=== PATIENT | female | born 1960 | race Caucasian/White ===

== ENCOUNTER 2018-03-13 10:50 | Emergency (ER) | payer MEDICARE, MEDICAID ==
[2018-03-13 10:55] VITALS: BP 112/77
[2018-03-13] MEDS ORDERED: IBUPROFEN 800 MG TABLET PO ONE (11:12)
--- NOTE | 2018-03-13 11:19 | ER Document Report ---
HPI - HPI Patient complains to provider of: left side rib pain Onset: Other - 2 days ago Quality of pain: Achy Severity: Severe Pain Level: 5 Context: Patient presents emergency department with complaints of left-sided rib pain. She reports 2 days ago she was at [facility] and she yanked 1 of the grocery carts out and hit herself in the left side of her ribs. Patient reports she has broken those ribs in the past. She reports pain is getting worse. Denies fever vomiting diarrhea. Denies trouble breathing. Associated Symptoms: None Exacerbated by: Denies Relieved by: Denies Similar symptoms previously: Yes Recently seen / treated by doctor: No - CONSTITUTIONAL Constitutional: DENIES: Fever, Chills - EENT EENT: DENIES: Sore Throat, Ear Pain, Eye problems - NEURO Neurology: DENIES: Headache, Weakness, Vision blurred - CARDIOVASCULAR Cardiovascular: REPORTS: Chest pain - RESPIRATORY Respiratory: REPORTS: Trouble Breathing. DENIES: Coughing - GASTROINTESTINAL Gastrointestinal: DENIES: Abdominal Pain, Black / Bloody Stools - URINARY Urinary: DENIES: Dysuria, Urgency, Frequency - REPRODUCTIVE Reproductive: DENIES: : - MUSCULOSKELETAL Musculoskeletal: DENIES: Extremity pain Past Medical History - General Information source: Patient - Social History Smoking Status: Former Smoker Cigarette use (# per day): No Chew tobacco use (# tins/day): No Frequency of alcohol use: None Drug Abuse: None Family History: Reviewed & Not Pertinent Patient has suicidal ideation: No Patient has homicidal ideation: No - Past Medical History Cardiac Medical History: Reports: Hx Coronary Artery Disease, Hx Heart Attack - 2010, Hx Hypercholesterolemia Denies: Hx Hypertension Pulmonary Medical History: Reports: Hx Bronchitis, Hx Pneumonia Denies: Hx Asthma, Hx COPD Neurological Medical History: Denies: Hx Cerebrovascular Accident, Hx Seizures Renal/ Medical History: Denies: Hx Peritoneal Dialysis Musculoskeletal Medical History: Denies Hx Arthritis Infectious Medical History: Denies: Hx MRSA Past Surgical History: Reports: Hx Cardiac Surgery - pacemaker, Hx Pacemaker, Hx Tubal Ligation. Denies: Hx Hysterectomy - Immunizations Hx Diphtheria, Pertussis, Tetanus Vaccination: Yes Vertical Provider Document - CONSTITUTIONAL Agree With Documented VS: Yes Exam Limitations: No Limitations General Appearance: WD/WN, No Apparent Distress - rr even/unlabored - INFECTION CONTROL TRAVEL OUTSIDE OF THE [place] IN LAST 30 DAYS: No - HEENT HEENT: Atraumatic, Normocephalic. negative: Conjuctival Injection - RESPIRATORY Respiratory: Breath Sounds Normal, No Respiratory Distress, Other - left side lower ribs area ttp, no ecchymosis RR even/unlabored - CARDIOVASCULAR Cardiovascular: Regular Rate - GI/ABDOMEN Gastrointestinal: Abdomen Soft - MUSCULOSKELETAL/EXTREMETIES Musculoskeletal/Extremeties: MAEW, FROM - NEURO Level of Consciousness: Awake, Alert, Appropriate Motor/Sensory: No Motor Deficit - DERM Integumentary: Warm, Dry Adult Front & Back Diagram: 1 - ttp, no ecchymosis RR even/unlabored Course - Re-evaluation Re-evalutation: 03/13/18 11:19 Motrin and x-ray ordered. Patient agrees with plan. - Vital Signs Vital signs: Temp Pulse Resp BP Pulse Ox 98.4 F 75 18 112/77 100 03/13/18 10:54 03/13/18 10:54 03/13/18 10:54 03/13/18 10:54 03/13/18 10:54 - Diagnostic Test Radiology reviewed: Image reviewed, Reports reviewed - EXAM DESCRIPTION: RIBS LEFT W/PA CHEST COMPLETED DATE/TIME: 03/13/2018 11:28 am REASON FOR STUDY: pain, hit COMPARISON: None. TECHNIQUE: Frontal view of the chest and additional views of the left ribs acquired. NUMBER OF VIEWS: Frontal chest film, left rib detail three views LIMITATIONS: None. FINDINGS: FRONTAL CXR: No pneumothorax. No pleural effusion. No atelectasis or infiltrates. Cardiac silhouette size normal. Left coronary stent, left-sided dual lead pacemaker. RIBS: No displaced rib fractures. No lytic or blastic bony lesions. OTHER: No other significant finding. IMPRESSION: NO PNEUMOTHORAX. NO DISPLACED RIB FRACTURES. Discharge - Discharge Clinical Impression: Rib pain on left side Condition: Stable Disposition: HOME, SELF-CARE Additional Instructions: *You have been evaluated for rib pain *Take medication as prescribed *Cough and deep breathe frequently *Follow up with a primary care provider within 5 days *Return to ED for worsening condition, changes, needs Referrals: ETHEL RODRIGUEZ MD [Primary Care Provider] - Follow up in 3-5 days
--- NOTE | 2018-03-13 11:53 | RADIOLOGY REPORT (SQ) ---
EXAM DESCRIPTION: RIBS LEFT W/PA CHEST COMPLETED DATE/TIME: 03/13/2018 11:28 am REASON FOR STUDY: pain, hit COMPARISON: None. TECHNIQUE: Frontal view of the chest and additional views of the left ribs acquired. NUMBER OF VIEWS: Frontal chest film, left rib detail three views LIMITATIONS: None. FINDINGS: FRONTAL CXR: No pneumothorax. No pleural effusion. No atelectasis or infiltrates. Cardi ac silhouette size normal. Left coronary stent, left-sided dual lead pacemaker. RIBS: No displaced rib fractures. No lytic or blastic bony lesions. OTHER: No other significant finding. IMPRESSION: NO PNEUMOTHORAX. NO DISPLACED RIB FRACTURES. COMMENT: SITE OF TRAUMA/COMPLAINT MARKED/STAMP COMPLETED: No TECHNICAL DOCUMENTATION: JOB ID: [id number] [employer]- All Rights Reserved Reading location - IP/workstation name: [email or web address]
== END 2018-03-13 12:25 | disposition home or self-care (01) ==
LOC: ER 10:50
DX: R07.89 Other chest pain (principal); I25.10 Atherosclerotic heart disease of native coronary artery without angina pectoris; E78.00 Pure hypercholesterolemia, unspecified; I25.2 Old myocardial infarction; Z98.51 Tubal ligation status; Z95.0 Presence of cardiac pacemaker
CPT/HCPCS: 99283; 71101; A9270

== ENCOUNTER → 2018-06-25 | Outpatient (CLI) | payer MEDICARE, MEDICAID ==
--- NOTE | 2018-06-25 10:30 | RADIOLOGY REPORT (SQ) ---
EXAM DESCRIPTION: SHOULDER RIGHT 2 OR MORE VIEWS COMPLETED DATE/TIME: 06/25/2018 9:52 am REASON FOR STUDY: PAIN OF RT CLAVICLE M89.8X1 OTHER SPECIFIED DISORDERS OF BONE, SHOULDER COMPARISON: None. NUMBER OF VIEWS: Three views. TECHNIQUE: Internal rotation, external rotation, and Y view images acquired of the right shoulder. LIMITATIONS: None. FINDINGS: MINERALIZATION: Normal. BONES: No acute fracture or dislocation. No worrisome bone lesions. JOINTS: No glenohumeral dislocation. No acromioclavicular joint widening. Mild AC joint bony spurri ng. There is joint space narrowing and bony spurring of the sternoclavicular joint marked with arrows. VISUALIZED LUNGS AND RIBS: No pneumothorax. No rib fracture. SOFT TISSUES: No radiopaque foreign body. OTHER: No other significant finding. IMPRESSION: Joint space narrowing and bony spurring at the sternoclavicular joint. Acromioclavicular joint bony spurring. No AC joint widening or malalignment. No acute glenohumeral fracture or malalignment TECHNICAL DOCUMENTATION: JOB ID: [id number] [employer]- All Rights Reserved Reading location - IP/workstation name: [email or web address]
--- NOTE | 2018-06-25 10:57 | RADIOLOGY REPORT (SQ) ---
EXAM DESCRIPTION: CHEST PA/LATERAL COMPLETED DATE/TIME: 06/25/2018 9:52 am REASON FOR STUDY: PAIN OF RT CLAVICLE Persistent dry cough COMPARISON: None. EXAM PARAMETERS: NUMBER OF VIEWS: two views TECHNIQUE: Digital Frontal and Lateral radiographic views of the chest acquired. RADIATION DOSE: NA LIMITATIONS: none FINDINGS: LUNGS AND PLEURA: No opacities, masses or pneumothorax. No pleural effusion. MEDIASTINUM AND HILAR STRUCTURES: No masses or contour abnormalities. HEART AND VASCULAR STRUCTURES: Heart normal size. No evidence for failure. BONES: Mild bony spurring at the right sternoclavicular joint HARDWARE: Left-sided pacemaker OTHER: No other significant finding. IMPRESSION: NO SIGNIFICANT RADIOGRAPHIC FINDING IN THE CHEST. TECHNICAL DOCUMENTATION: JOB ID: [id number] [employer]- All Rights Reserved Reading location - IP/workstation name: [email or web address]
== END ==
LOC: OD 09:35
PROVIDERS: ATTEND Internal Medicine Medical Oncology
DX: M89.8X1 Other specified disorders of bone, shoulder (principal)
CPT/HCPCS: 71046

== ENCOUNTER → 2019-12-31 | Outpatient (CLI) | payer MEDICARE, MEDICAID | LOC: OD 11:06 | PROVIDERS: ATTEND Registered Nurse | DX: E87.5 Hyperkalemia (principal) | CPT/HCPCS: 36415; 84132 ==

== ENCOUNTER 2020-03-15 12:21 | Inpatient (IN) | payer MEDICAID, MEDICARE ==
[2020-03-15] MEDS ORDERED: RINGERS SOLUTION,LACTATED 1,000 ML IV ONE (14:45)
[2020-03-15] MEDS ORDERED: ALBUTEROL SULFATE 0.083% NEB 2.5 MG/3 ML AMPUL NEB ONE (14:50)
--- NOTE | 2020-03-15 14:50 | ER Document Report ---
ED General - General Stated Complaint: COUGH,FEVER Time Seen by Provider: 03/15/20 14:15 Primary Care Provider: KIRA FELICIANO, GLUED WOOD TESTER [NURSE PRACTITIONER] - Follow up as needed Notes: 59-year-old female presents emergency department on the advice of her physician Dr. Wick. Patient states that she has been feeling generally unwell for the past 5 to 6 days, shortness of breath associated with a dry cough. 3 days ago she was tested for coronavirus, her test came back positive today. States that she was started on azithromycin 3 days ago for suspicion of possible coronavirus. States that she has been feeling progressively worse since then. Complains of shortness of breath, upper abdominal pain, mild diarrhea, dry cough. Denies any chest pain. Admits fevers. TRAVEL OUTSIDE OF THE [place] IN LAST 30 DAYS: No - Related Data Allergies/Adverse Reactions: No Known Allergies Allergy (Verified 03/15/20 16:26) Past Medical History - General Information source: Patient - Social History Smoking Status: Former Smoker Frequency of alcohol use: Occasional Drug Abuse: None Family History: Reviewed & Not Pertinent - Past Medical History Cardiac Medical History: Reports: Hx Coronary Artery Disease, Hx Heart Attack - 2010, Hx Hypercholesterolemia Denies: Hx Hypertension Pulmonary Medical History: Reports: Hx Bronchitis, Hx Pneumonia Denies: Hx Asthma, Hx COPD Neurological Medical History: Denies: Hx Cerebrovascular Accident, Hx Seizures Renal/ Medical History: Denies: Hx Peritoneal Dialysis Musculoskeletal Medical History: Denies Hx Arthritis Infectious Medical History: Denies: Hx MRSA Past Surgical History: Reports: Hx Cardiac Surgery - pacemaker, Hx Pacemaker, Hx Tubal Ligation. Denies: Hx Hysterectomy - Immunizations Hx Diphtheria, Pertussis, Tetanus Vaccination: Yes Review of Systems - Review of Systems Constitutional: See HPI, Chills, Diaphoresis, Fever, Malaise EENT: No symptoms reported Cardiovascular: No symptoms reported. denies: Chest pain, Syncope Respiratory: See HPI, Cough, Short of breath Gastrointestinal: See HPI, Abdominal pain, Diarrhea. denies: Nausea, Vomiting -: Yes All other systems reviewed and negative Physical Exam - Vital signs Vitals: Temp 100.5 F H 03/15/20 14:00 - Notes Notes: GENERAL: Awake, sitting up in bed, appears tired and uncomfortable but not in any acute respiratory distress. HEAD: Normocephalic, atraumatic EYES: Pupils equal, round and reactive to light, extraocular movements intact. ENT: Oral mucosa moist, tongue midline. NECK: Full range of motion, supple, trachea midline. LUNGS: Trace expiratory wheezing, no acute respiratory distress, no tachypnea. HEART: Mildly tachycardic rate and rhythm, no murmurs, gallops, rubs. ABDOMEN: Soft, nontender, nondistended, bowel sounds present in all 4 quadrants. EXTREMITIES: Moves all 4 extremities spontaneously, no edema, radial and dorsalis pedis pulses 2/4 bilaterally. No cyanosis. NEUROLOGICAL: Alert and oriented x3, normal speech. PSYCH: Normal mood, normal affect. SKIN: Warm, Dry, normal turgor, no rashes or lesions noted. Course - Re-evaluation Re-evalutation: 03/15/20 17:27 CBC unremarkable, coags slightly prolonged, venous blood gas unremarkable, CMP shows low sodium of 132.3, potassium elevated at 5.2, BUN elevated at 22, lactic acid normal, troponin detectable but negative at 0.017, proBNP elevated at 932. Chest x-ray shows multifocal pneumonia. Given the borderline hypoxia with a pulse ox of 9 percent patient will be given Decadron for4 COVID related pneumonia, patient also started on azithromycin and Rocephin. Patient discussed with Dr. Frazier who agrees to admit the patient to his service. Due to the COVID positive status patient will have to go to the IMCU. - Vital Signs Vital signs: Temp Pulse Resp BP Pulse Ox 100.3 F 105 H 20 106/68 94 03/15/20 14:59 03/15/20 14:59 03/15/20 14:59 03/15/20 14:59 03/15/20 14:59 - Laboratory Result Diagrams: 03/15/20 15:30 03/15/20 15:30 Laboratory results interpreted by me: 03/15/20 03/15/20 03/15/20 15:30 15:30 15:30 MCV 108 H MCH 37.0 H RDW 15.3 H APTT 42.5 H Sodium 132.3 L Potassium 5.2 H BUN 22 H AST 58 H NT-Pro-B Natriuret Pep 03/15/20 15:30 MCV MCH RDW APTT Sodium Potassium BUN AST NT-Pro-B Natriuret Pep 932 H - EKG Interpretation by Me Additional EKG results interpreted by me: 03/15/20 17:59 EKG shows sinus rhythm at a rate of 98, left axis deviation, normal intervals, no ST segment elevation or depression, T wave flattening in lead III, rapid R wave progression per my interpretation. Discharge - Discharge Clinical Impression: COVID-19, Multifocal pneumonia, Hyperkalemia Condition: Fair Disposition: ADMITTED INPATIENT Admitting Provider: Karin (Hospitalist) Unit Admitted: IMCU Referrals: KIRA FELICIANO, GLUED WOOD TESTER [NURSE PRACTITIONER] - Follow up as needed
--- NOTE | 2020-03-15 15:31 | RADIOLOGY REPORT (SQ) ---
EXAM DESCRIPTION: CHEST SINGLE VIEW IMAGES COMPLETED DATE/TIME: 03/15/2020 3:19 pm REASON FOR STUDY: COVID +, SOB COMPARISON: 06/25/2018 EXAM PARAMETERS: NUMBER OF VIEWS: One view. TECHNIQUE: Single frontal radiographic view of the chest acquired. RADIATION DOSE: NA LIMITATIONS: None. FINDINGS: LUNGS AND PLEURA: Multifocal patchy airspace opacities are seen involving predominantly th e lung bases. No pleural effusion or pneumothorax. MEDIASTINUM AND HILAR STRUCTURES: No masses. Contour normal. HEART AND VASCULAR STRUCTURES: Heart normal in size. Normal vasculature. BONES: No acute findings. HARDWARE: AICD, stable. OTHER: No other significant finding. IMPRESSION: Multi lobar pneumonia. TECHNICAL DOCUMENTATION: JOB ID: [id number] [employer]- All Rights Reserved Reading location - IP/workstation name: [email or web address]
[2020-03-15 15:48] LABS: VENOUS BLOOD BASE EXCESS -4.3 mmol/L; VENOUS BLOOD HCO3 20.6 mmol/L (20-32); VENOUS BLOOD PCO2 37.5 mmHg (35-63); VENOUS BLOOD PH 7.36 (7.30-7.42)
[2020-03-15 16:09] LABS: INTERNATIONAL RATION (INR) 1.16; PARTIAL THROMBOPLASTIN TIME 42.5 SEC (23.5-35.8)
[2020-03-15 16:12] LABS: HEMATOCRIT 45.3 % (36.0-47.0); HEMOGLOBIN 15.5 g/dL (12.0-15.5); MEAN CORPUSCULAR HGB CONC 34.2 g/dL (32.0-36.0); MEAN CORPUSCULAR VOLUME 108 fl (80-97); PLATELET COUNT 375 10^3/uL (150-450); RED BLOOD COUNT 4.19 10^6/uL (3.72-5.28); RED CELL DISTRIBUTION WIDTH 15.3 % (11.5-14.0); WHITE BLOOD COUNT 5.3 10^3/uL (4.0-10.5)
[2020-03-15 16:21] LABS: ALKALINE PHOSPHATASE 72 U/L (38-126); ANION GAP 8 (5-19); ASPARTATE AMINO TRANSFERASE 58 U/L (14-36); BILIRUBIN,DIRECT 0.2 mg/dL (0.0-0.4); BILIRUBIN,TOTAL 0.8 mg/dL (0.2-1.3); BLOOD UREA NITROGEN 22 mg/dL (7-20); CARBON DIOXIDE 22 mmol/L (22-30); CHLORIDE 102 mmol/L (98-107); CREATINE KINASE 37 U/L (30-135); GLUCOSE 103 mg/dL (75-110); POTASSIUM 5.2 mmol/L (3.6-5.0)
[2020-03-15 16:34] LABS: NT PRO BNP 932 pg/mL (<125); TROPONIN I 0.017 ng/mL
[2020-03-15 16:39] LABS: CREATINE KINASE MB < 0.22 ng/mL (<4.55)
[2020-03-15 16:44] LABS: ABSOLUTE LYMPHOCYTES# (MANUAL) 1.1 10^3/uL (0.5-4.7); ABSOLUTE MONOCYTES # (MANUAL) 0.2 10^3/uL (0.1-1.4); BASOPHILS % (MANUAL) 0 % (0-2); EOSINOPHILS % (MANUAL) 0 % (0-6); LYMPHOCYTES % (MANUAL) 20 % (13-45); MONOCYTES % (MANUAL) 4 % (3-13); SEGMENTED NEUTROPHILS % (MAN) 76 % (42-78); TOTAL CELLS COUNTED 100
[2020-03-15 16:47] LABS: POLYCHROMASIA SLIGHT; TOXIC VACUOLATION PRESENT
[2020-03-15 16:48] LABS: PLATELET COMMENT ADEQUATE; TEAR DROP CELLS SLIGHT
[2020-03-15] MEDS ORDERED: AZITHROMYCIN INJ 500 MG VIAL IV ONE (17:14)
[2020-03-15] MEDS ORDERED: DEXAMETHASONE SOD PHOS INJ 10 MG/1 ML VIAL IV ONE (17:14)
[2020-03-15] MEDS ORDERED: CEFTRIAXONE 1 GM/D5W RTU 1 GM/50 ML RTUPB IV ONE (17:14)
[2020-03-15] MEDS ORDERED: OXYCODONE-ACETAMINOPHEN 5-325 MG TABLET PO PRN (17:56)
[2020-03-15] MEDS ORDERED: PROMETHAZINE HCL INJ 25 MG/1 ML VIAL IV PRN (17:56)
[2020-03-15] MEDS ORDERED: IPRATROPIUM/ALBUTEROL 0.5-2.5 MG/3 ML AMPUL NEB PRN (17:56)
[2020-03-15] MEDS ORDERED: ONDANSETRON HCL INJ/PF 4 MG/2 ML SDV IV PRN (17:56)
[2020-03-15] MEDS ORDERED: NORMAL SALINE 1000 ML 1,000 ML IV PRN (17:56)
[2020-03-15] MEDS ORDERED: FUROSEMIDE 20 MG TABLET PO PRN (18:02)
[2020-03-15] MEDS ORDERED: GLUCAGON,HUMAN RECOMB 1 MG INJ IM PRN (18:05)
[2020-03-15] MEDS ORDERED: DEXTROSE 40% GEL 15 GM TUBE PO PRN ×2 (18:05)
[2020-03-15] MEDS ORDERED: DEXTROSE 50%-WATER 25 GM/50 ML DISP.SYRIN IV PRN ×2 (18:05)
[2020-03-15] MEDS ORDERED: HYDRALAZINE HCL INJ/PF 20 MG/1 ML SDV IV PRN (18:06)
[2020-03-15] MEDS ORDERED: DEXAMETHASONE SOD PHOSPHATE INJ 4 MG/1 ML VIAL IV ONE (18:15)
--- NOTE | 2020-03-15 18:17 | PDOC H&P ---
History of Present Illness Admission Date/PCP: PEPE NAVARRETE MD History of Present Illness: GABRIELE RODRIGUEZ is a 59 year old female past medical history of thrombocytosis, CAD status post [place] 2010 and pacemaker placement, hypertension, diabetes, presented to ED complaining of 1 week of generalized fatigue and weakness, shortness of breath associated with dry cough, nonbloody diarrhea subjective fever. A week ago patient went to her PCP and It was suspected and patient was tested for COVID and was started on azithromycin, today patient was notified by her PCP that her COVID test had come back positive and she needed to report to ED. Denies any chest pain, headache, vision changes, loss of taste, loss of smell, focal neurological symptoms, orthopnea, proximal nocturnal dyspnea, weight gain, weight loss, abdominal pain, constipation or any urinary symptoms. In the ED she was noted to be febrile, tachycardic and tachypneic hyperkalemic, and chest x-ray showing multilobar pneumonia. Hospitalist was consulted for admission. Past Medical History Cardiac Medical History: Reports: Coronary Artery Disease, Myocardial Infarction - 2010, Hyperlipidema Denies: Hypertension Pulmonary Medical History: Reports: Bronchitis, Pneumonia Denies: Asthma, Chronic Obstructive Pulmonary Disease (COPD) Neurological Medical History: Denies: Seizures Musculoskeltal Medical History: Denies: Arthritis Hematology: Denies: Anemia Infectious Medical History: Denies: Methicillin-Resistant Staph Aureus Past Surgical History Past Surgical History: Reports: Pacemaker, Tubal Ligation Denies: Hysterectomy Social History Smoking Status: Former Smoker Family History Family History: Reviewed & Not Pertinent Parental Family History Reviewed: Yes Children Family History Reviewed: Yes Sibling(s) Family History Reviewed.: Yes Medication/Allergy Home Medications: Hydroxyurea 500 mg PO DAILY 09/11/12 Sotalol HCl [Sotalol] 40 mg PO DAILY 09/11/12 Cetirizine HCl [Zyrtec] 10 mg PO DAILY 03/15/20 Escitalopram Oxalate [Lexapro 10 mg Tablet] 15 mg PO DAILY 03/15/20 Furosemide [Lasix 20 mg Tablet] 20 mg PO DAILYP PRN 03/15/20 Metformin HCl [Glucophage 500 mg Tablet] 500 mg PO BIDACBS 03/15/20 Allergies/Adverse Reactions: No Known Allergies Allergy (Verified 03/15/20 16:26) Review of Systems Review of Systems: as per hpi Physical Exam Vital Signs: Temp Pulse Resp BP Pulse Ox 100.3 F 105 H 20 106/68 94 03/15/20 14:59 03/15/20 14:59 03/15/20 14:59 03/15/20 14:59 03/15/20 14:59 Intake & Output 03/14/20 03/15/20 03/16/20 06:59 06:59 06:59 Intake Total 1000 Balance 1000 Weight 64.864 kg General appearance: PRESENT: no acute distress, well-developed, well-nourished Head exam: PRESENT: atraumatic, normocephalic Respiratory exam: PRESENT: clear to auscultation tristan, crackles. ABSENT: rales, rhonchi, wheezes Cardiovascular exam: PRESENT: RRR. ABSENT: diastolic murmur, rubs, systolic murmur GI/Abdominal exam: PRESENT: normal bowel sounds, soft. ABSENT: distended, guarding, mass, organolmegaly, rebound, tenderness Neurological exam: PRESENT: alert, awake, oriented to person, oriented to place, oriented to time, oriented to situation, CN II-XII grossly intact. ABSENT: motor sensory deficit Results Laboratory Results: 03/15/20 15:30 03/15/20 15:30 03/15/20 03/15/20 03/15/20 15:30 15:30 15:30 WBC 5.3 RBC 4.19 Hgb 15.5 Hct 45.3 MCV 108 H MCH 37.0 H MCHC 34.2 RDW 15.3 H Plt Count 375 Seg Neutrophils % Not Reportable VBG pH VBG pCO2 VBG HCO3 VBG Base Excess Sodium 132.3 L Potassium 5.2 H Chloride 102 Carbon Dioxide 22 Anion Gap 8 BUN 22 H Creatinine 0.87 Est GFR ( Amer) > 60 Glucose 103 Lactic Acid 1.0 Calcium 9.0 Total Bilirubin 0.8 AST 58 H Alkaline Phosphatase 72 Total Protein 8.0 Albumin 4.0 Lipase 257.0 03/15/20 15:30 WBC RBC Hgb Hct MCV MCH MCHC RDW Plt Count Seg Neutrophils % VBG pH 7.36 VBG pCO2 37.5 VBG HCO3 20.6 VBG Base Excess -4.3 Sodium Potassium Chloride Carbon Dioxide Anion Gap BUN Creatinine Est GFR ( Amer) Glucose Lactic Acid Calcium Total Bilirubin AST Alkaline Phosphatase Total Protein Albumin Lipase 08/05/20 08/05/20 15:30 15:30 Creatine Kinase 37 CK-MB (CK-2) < 0.22 Troponin I 0.017 NT-Pro-B Natriuret Pep 932 H Impressions: Chest X-Ray 03/15/20 14:42 IMPRESSION: Multi lobar pneumonia. Assessment and Plan - Diagnosis (1) Multifocal pneumonia Is this a current diagnosis for this admission?: Yes Plan: Likely due to COVID-19, superimposed bacterial pneumonia could also be a poss ibility. Chest x-ray positive for multifocal pneumonia. WBC WNL. Low-grade fever. Empiric IV antibiotics, sputum culture, supplemental oxygen, duo nebs, weight dosed Lovenox, incentive spirometry, flutter valve. (2) CAD (coronary artery disease) Is this a current diagnosis for this admission?: Yes Plan: Denies any anginal symptoms. Mildly elevated troponin likely due to demand mismatch. Resume home meds. Trend troponins. Aspirin and statin. (3) Thrombocytosis Is this a current diagnosis for this admission?: Yes Plan: History of thrombocytosis. On hydroxyurea. Resume home meds. Outpatient PCP and hematology follow-up. (4) Hypertension Is this a current diagnosis for this admission?: Yes Plan: Euvolemic. Normotensive. Resume home meds. Adjust meds as needed. (5) COVID-19 Is this a current diagnosis for this admission?: Yes Plan: As per. (6) Hyperkalemia Is this a current diagnosis for this admission?: Yes Plan: No acute EKG changes. Hyperkalemia protocol. (7) Diabetes Qualifiers: Diabetes mellitus type: type 2 Is this a current diagnosis for this admission?: Yes Plan: Diabetic diet. Sliding scale insulin. Accu-Chek. Hypoglycemia protocol. - Time Time Spent with patient: 35 or more minutes Medications reviewed and adjusted accordingly: Yes Anticipated Discharge Disposition: Home, Self Care Anticipated Discharge Timeframe: within 48 hours
[2020-03-15] MEDS: ACETAMINOPHEN 325 MG TABLET PO PRN (18:39)
--- NOTE | 2020-03-15 18:52 | EKG REPORT ---
SEVERITY:- ABNORMAL ECG - SINUS RHYTHM PROBABLE LEFT ATRIAL ABNORMALITY LEFT ANTERIOR FASCICULAR BLOCK LATERAL INFARCT, AGE INDETERMINATE : Confirmed by: Haroldo Abbasi MD 15-Mar-2020 18:51:35
[2020-03-15 21:00] LABS: APPEARANCE,URINE SLIGHTLY-CLOUDY; BILIRUBIN,URINE NEGATIVE (NEGATIVE); COLOR,URINE YELLOW; GLUCOSE, URINE NEGATIVE (NEGATIVE); KETONES,URINE TRACE mg/dL (NEGATIVE); LEUKOCYTE ESTERASE,URINE NEGATIVE (NEGATIVE); NITRITE,URINE NEGATIVE (NEGATIVE); PROTEIN,URINE 30 mg/dL (NEGATIVE); URINE SPECIFIC GRAVITY 1.019; UROBILINOGEN,URINE NEGATIVE mg/dL (<2.0)
[2020-03-15] MEDS ORDERED: DEXAMETHASONE SOD PHOSPHATE INJ 4 MG/1 ML VIAL IM SCH (22:00)
[2020-03-15] MEDS ORDERED: DEXAMETHASONE SOD PHOS INJ 10 MG/1 ML VIAL IM SCH (22:00)
[2020-03-15] MEDS: FAMOTIDINE 20 MG TABLET PO SCH (23:35)
[2020-03-15] MEDS: TEMAZEPAM 7.5 MG CAPSULE PO SCH (23:48)
[2020-03-15] MEDS: ENOXAPARIN SODIUM INJ 60 MG/0.6 ML DISP.SYRIN SUBCUT SCH (23:48)
[2020-03-15] MEDS: INSULIN LISPRO 100 UNIT/ML 3 ML VIAL SUBCUT SCH (23:49)
[2020-03-16] MEDS ORDERED: DEXAMETHASONE SOD PHOSPHATE INJ 4 MG/1 ML VIAL IM SCH (02:00)
[2020-03-16] MEDS ORDERED: NORMAL SALINE 1000 ML 1,000 ML IV PRN (04:52)
[2020-03-16] MEDS ORDERED: NORMAL SALINE 1000 ML 1,000 ML IV ONE (05:00)
[2020-03-16] MEDS: DEXAMETHASONE SOD PHOSPHATE INJ 4 MG/1 ML VIAL IV SCH ×3 (05:54→22:04)
[2020-03-16 07:00] LABS: INTERNATIONAL RATION (INR) 1.07; PROTHROMBIN TIME 14.1 SEC (11.4-15.4)
[2020-03-16 07:01] LABS: HEMATOCRIT 44.8 % (36.0-47.0); HEMOGLOBIN 15.4 g/dL (12.0-15.5); MEAN CORPUSCULAR HEMOGLOBIN 37.3 pg (27.0-33.4); MEAN CORPUSCULAR HGB CONC 34.5 g/dL (32.0-36.0); MEAN CORPUSCULAR VOLUME 108 fl (80-97); PLATELET COUNT 314 10^3/uL (150-450); RED BLOOD COUNT 4.14 10^6/uL (3.72-5.28); RED CELL DISTRIBUTION WIDTH 15.2 % (11.5-14.0)
[2020-03-16 07:28] LABS: DIRECT LDL 61 mg/dL (<100); TRIGLYCERIDES 148 mg/dL (<150); VLDL CHOLESTEROL 29.6 mg/dL (10-31)
[2020-03-16] MEDS ORDERED: ONDANSETRON HCL INJ/PF 4 MG/2 ML SDV IV PRN (08:00)
[2020-03-16] MEDS ORDERED: PROMETHAZINE HCL INJ 25 MG/1 ML VIAL IV PRN (08:00)
[2020-03-16] MEDS: INSULIN LISPRO 100 UNIT/ML 3 ML VIAL SUBCUT SCH ×4 (08:08→22:03)
[2020-03-16 08:32] LABS: ABSOLUTE LYMPHOCYTES# (MANUAL) 0.4 10^3/uL (0.5-4.7); ABSOLUTE MONOCYTES # (MANUAL) 0.1 10^3/uL (0.1-1.4); BASOPHILS % (MANUAL) 0 % (0-2); EOSINOPHILS % (MANUAL) 0 % (0-6); LYMPHOCYTES % (MANUAL) 13 % (13-45); MONOCYTES % (MANUAL) 2 % (3-13); SEGMENTED NEUTROPHILS % (MAN) 84 % (42-78); TOTAL CELLS COUNTED 100
[2020-03-16 08:33] LABS: ANISOCYTOSIS SLIGHT; PLATELET CLUMPS PRESENT; POLYCHROMASIA SLIGHT; TOXIC VACUOLATION PRESENT
[2020-03-16 08:34] LABS: PLATELET COMMENT ADEQUATE
[2020-03-16 09:28] LABS: ALBUMIN 3.3 g/dL (3.5-5.0); ALKALINE PHOSPHATASE 64 U/L (38-126); ANION GAP 7 (5-19); ASPARTATE AMINO TRANSFERASE 50 U/L (14-36); BILIRUBIN,DIRECT 0.1 mg/dL (0.0-0.4); BILIRUBIN,TOTAL 0.4 mg/dL (0.2-1.3); BLOOD UREA NITROGEN 17 mg/dL (7-20); CALCIUM 8.6 mg/dL (8.4-10.2); CARBON DIOXIDE 20 mmol/L (22-30); CHLORIDE 109 mmol/L (98-107); GLUCOSE 157 mg/dL (75-110); POTASSIUM 5.7 mmol/L (3.6-5.0); TOTAL PROTEIN 6.9 g/dL (6.3-8.2)
[2020-03-16] MEDS ORDERED: ESCITALOPRAM OXALATE 10 MG TABLET PO SCH (10:00)
[2020-03-16] MEDS: NORMAL SALINE 1000 ML 1,000 ML IV PRN ×2 (10:00→18:51)
[2020-03-16] MEDS: ENOXAPARIN SODIUM INJ 60 MG/0.6 ML DISP.SYRIN SUBCUT SCH ×2 (10:00→22:04)
[2020-03-16] MEDS: HYDROXYUREA 500 MG CAPSULE PO SCH (10:01)
[2020-03-16] MEDS: ESCITALOPRAM OXALATE 10 MG TABLET PO SCH ×2 (10:01→10:13)
[2020-03-16] MEDS: ZINC SULFATE 220 MG CAPSULE PO SCH (10:01)
[2020-03-16] MEDS: SOTALOL HCL 80 MG TABLET PO SCH (10:01)
[2020-03-16] MEDS: ASCORBIC ACID 500 MG TABLET PO SCH ×2 (10:01→18:52)
[2020-03-16] MEDS: FAMOTIDINE 20 MG TABLET PO SCH (10:02)
[2020-03-16] MEDS ORDERED: POTASSI CL 20 MEQ/50 ML RIDER 20 MEQ/50 ML RTUPB IV ONE (10:14)
--- NOTE | 2020-03-16 10:26 | PDOC PROGRESS REPORT ---
Subjective Progress Note for:: 03/16/20 Subjective:: GABRIELE RODRIGUEZ is a 59 year old female past medical history of th rombocytosis, CAD status post [place] 2010 and pacemaker placement, hypertension, diabetes, presented to ED complaining of 1 week of generalized fatigue and weakness, shortness of breath associated with dry cough, nonbloody diarrhea subjective fever. A week ago patient went to her PCP and It was suspected and patient was tested for COVID and was started on azithromycin, today patient was notified by her PCP that her COVID test had come back positive and she needed to report to ED. Denies any chest pain, headache, vision changes, loss of taste, loss of smell, focal neurological symptoms, orthopnea, proximal nocturnal dyspnea, weight gain, weight loss, abdominal pain, constipation or any urinary symptoms. In the ED she was noted to be febrile, tachycardic and tachypneic hyperkalemic, and chest x-ray showing multilobar pneumonia. Hospitalist was consulted for admission. 03/16/2020. No acute events overnight. Comfortably resting in bed apparent distress, denies any fever, chills, nausea, vomiting, diarrhea, constipation or any urinary symptoms. Ambulatory and having normal bowel and bladder movements. If remains asymptomatic will discharge home tomorrow. Reason For Visit: RESPIRATORY FAILURE WITH HYPOXIA, COVID-19 Physical Exam Vital Signs: Temp Pulse Resp BP Pulse Ox 97.7 F 71 24 H 88/56 L 94 03/16/20 08:00 03/16/20 08:00 03/16/20 08:00 03/16/20 08:00 03/16/20 09:13 Intake & Output 03/15/20 03/16/20 03/17/20 06:59 06:59 06:59 Intake Total 1050 1000 Balance 1050 1000 Weight 65 kg General appearance: PRESENT: no acute distress, well-developed, well-nourished Head exam: PRESENT: atraumatic, normocephalic Respiratory exam: PRESENT: clear to auscultation tristan. ABSENT: rales, rhonchi, wheezes Cardiovascular exam: PRESENT: RRR, other - Pacemaker in place. ABSENT: diastolic murmur, rubs, systolic murmur GI/Abdominal exam: PRESENT: normal bowel sounds, soft. ABSENT: distended, guarding, mass, organolmegaly, rebound, tenderness Neurological exam: PRESENT: alert, awake, oriented to person, oriented to place, oriented to time, oriented to situation, CN II-XII grossly intact. ABSENT: mot or sensory deficit Results Laboratory Results: 03/16/20 06:32 03/16/20 08:30 03/15/20 03/15/20 03/15/20 15:30 15:30 15:30 WBC 5.3 RBC 4.19 Hgb 15.5 Hct 45.3 MCV 108 H MCH 37.0 H MCHC 34.2 RDW 15.3 H Plt Count 375 Seg Neutrophils % Not Reportable VBG pH VBG pCO2 VBG HCO3 VBG Base Excess Sodium 132.3 L Potassium 5.2 H Chloride 102 Carbon Dioxide 22 Anion Gap 8 BUN 22 H Creatinine 0.87 Est GFR ( Amer) > 60 Est GFR (Non-Af Amer) Glucose 103 Lactic Acid 1.0 Calcium 9.0 Magnesium Total Bilirubin 0.8 AST 58 H Alkaline Phosphatase 72 C-Reactive Protein Total Protein 8.0 Albumin 4.0 Triglycerides Cholesterol LDL Cholesterol Direct VLDL Cholesterol HDL Cholesterol Lipase 257.0 Urine Color Urine Appearance Urine pH Ur Specific [place] Urine Protein Urine Glucose (UA) Urine Ketones Urine Blood Urine Nitrite Ur Leukocyte Esterase Urine WBC (Auto) Urine RBC (Auto) 03/15/20 03/15/20 03/15/20 15:30 15:30 20:40 WBC RBC Hgb Hct MCV MCH MCHC RDW Plt Count Seg Neutrophils % VBG pH 7.36 VBG pCO2 37.5 VBG HCO3 20.6 VBG Base Excess -4.3 Sodium Potassium Chloride Carbon Dioxide Anion Gap BUN Creatinine Est GFR ( Amer) Est GFR (Non-Af Amer) Glucose Lactic Acid Calcium Magnesium Total Bilirubin AST Alkaline Phosphatase C-Reactive Protein 247.5 H Total Protein Albumin Triglycerides Cholesterol LDL Cholesterol Direct VLDL Cholesterol HDL Cholesterol Lipase Urine Color YELLOW Urine Appearance SLIGHTLY-CLOUDY Urine pH 5.0 Ur Specific [place] 1.019 Urine Protein 30 H Urine Glucose (UA) NEGATIVE Urine Ketones TRACE H Urine Blood NEGATIVE Urine Nitrite NEGATIVE Ur Leukocyte Esterase NEGATIVE Urine WBC (Auto) 2 Urine RBC (Auto) 1 03/16/20 03/16/20 03/16/20 06:32 06:32 08:30 WBC 3.0 L RBC 4.14 Hgb 15.4 Hct 44.8 MCV 108 H MCH 37.3 H MCHC 34.5 RDW 15.2 H Plt Count 314 Seg Neutrophils % Not Reportable VBG pH VBG pCO2 VBG HCO3 VBG Base Excess Sodium Cancelled 136.2 L Potassium Cancelled 5.7 H Chloride Cancelled 109 H Carbon Dioxide Cancelled 20 L Anion Gap Cancelled 7 BUN Cancelled 17 Creatinine Cancelled 0.54 Est GFR ( Amer) Cancelled > 60 Est GFR (Non-Af Amer) Cancelled Glucose Cancelled 157 H Lactic Acid Calcium Cancelled 8.6 Magnesium Cancelled 2.5 H Total Bilirubin Cancelled 0.4 AST Cancelled 50 H Alkaline Phosphatase Cancelled 64 C-Reactive Protein Total Protein Cancelled 6.9 Albumin Cancelled 3.3 L Triglycerides 148 Cholesterol 114.90 LDL Cholesterol Direct 61 VLDL Cholesterol 29.6 HDL Cholesterol 21 L Lipase Urine Color Urine Appearance Urine pH Ur Specific [place] Urine Protein Urine Glucose (UA) Urine Ketones Urine Blood Urine Nitrite Ur Leukocyte Esterase Urine WBC (Auto) Urine RBC (Auto) 03/15/20 03/15/20 15:30 15:30 Creatine Kinase 37 CK-MB (CK-2) < 0.22 Troponin I 0.017 NT-Pro-B Natriuret Pep 932 H Impressions: Chest X-Ray 03/15/20 14:42 IMPRESSION: Multi lobar pneumonia. Assessment and Plan - Diagnosis (1) Multifocal pneumonia Is this a current diagnosis for this admission?: Yes Plan: Likely due to COVID-19, superimposed bacterial pneumonia could also be a possibility. Chest x-ray positive for multifocal pneumonia. WBC WNL. Low-grade fever. Day 2 IV antibiotics. Day 2 IV azithromycin. Day 2 IV ceftriaxone. Day 2 IV dexamethasone. Day 2 therapeutic Lovenox. Continue empiric IV antibiotics, sputum culture, supplemental oxygen, duo nebs, weight dosed Lovenox, incentive spirometry, flutter valve. (2) CAD (coronary artery disease) Qualifiers: Coronary Disease-Associated Artery/Lesion type: [place] artery [place] vs. transplanted heart: [place] heart Associated angina: without angina Qualified Code(s): I25.10 - Atherosclerotic heart disease of [place] coronary artery without angina pectoris Is this a current diagnosis for this admission?: Yes Plan: Denies any anginal symptoms. Status post [place] 2010. Pacemaker in place. Mildly elevated troponin likely due to demand mismatch. Resume home meds. Trend troponins. Aspirin and statin. (3) Thrombocytosis Is this a current diagnosis for this admission?: Yes Plan: Platelets WNL. History of thrombocytosis. On hydroxyurea. Resume home meds. Outpatient PCP and hematology follow-up. (4) Hypertension Is this a current diagnosis for this admission?: Yes Plan: Euvolemic. Normotensive. Currently not on any antihypertensive meds. Monitor vitals. PRN IV hydralazine and IV metoprolol. (5) COVID-19 Is this a current diagnosis for this admission?: Yes Plan: As per. (6) Hyperkalemia Is this a current diagnosis for this admission?: Yes Plan: No acute EKG changes. Hyperkalemia protocol. (7) Diabetes Qualifiers: Diabetes mellitus type: type 2 Is this a current diagnosis for this admission?: Yes Plan: Diabetic diet. Sliding scale insulin. Accu-Chek. Hypoglycemia protocol. - Time Time Spent with patient: 25-34 minutes Medications reviewed and adjusted accordingly: Yes Anticipated Discharge Disposition: Home, Self Care Anticipated Discharge Timeframe: within 24 hours
[2020-03-16] MEDS ORDERED: SODIUM POLYSTYRENE SULFONATE 15 GM/60 ML PO ONE (11:30)
[2020-03-16] MEDS ORDERED: DIPHENHYDRAMINE HCL 25 MG CAPSULE PO PRN (16:42)
[2020-03-16] MEDS ORDERED: CEFTRIAXONE 1 GM/D5W RTU 1 GM/50 ML RTUPB IV SCH (18:00)
[2020-03-16] MEDS ORDERED: DIPHENHYDRAMINE HCL 50 MG/ML VIAL IV PRN (21:21)
[2020-03-16] MEDS: TEMAZEPAM 7.5 MG CAPSULE PO SCH (22:05)
[2020-03-17] MEDS: FAMOTIDINE 20 MG TABLET PO SCH ×3 (00:47→21:52)
[2020-03-17] MEDS ORDERED: AZITHROMYCIN INJ 500 MG VIAL IV ONE (04:05)
[2020-03-17 05:11] LABS: HEMATOCRIT 41.6 % (36.0-47.0); HEMOGLOBIN 14.3 g/dL (12.0-15.5); MEAN CORPUSCULAR HEMOGLOBIN 37.2 pg (27.0-33.4); MEAN CORPUSCULAR HGB CONC 34.5 g/dL (32.0-36.0); MEAN CORPUSCULAR VOLUME 108 fl (80-97); PLATELET COUNT 389 10^3/uL (150-450); RED BLOOD COUNT 3.85 10^6/uL (3.72-5.28); RED CELL DISTRIBUTION WIDTH 15.5 % (11.5-14.0); WHITE BLOOD COUNT 5.7 10^3/uL (4.0-10.5)
[2020-03-17] MEDS: AZITHROMYCIN 500 MG in DEXTROSE 5%-WATER 250 ML IV SCH ×2 (05:24→22:53)
[2020-03-17] MEDS: DEXAMETHASONE SOD PHOSPHATE INJ 4 MG/1 ML VIAL IV SCH ×3 (05:25→21:52)
[2020-03-17 05:27] LABS: ANION GAP 9 (5-19); BLOOD UREA NITROGEN 15 mg/dL (7-20); CALCIUM 8.7 mg/dL (8.4-10.2); CARBON DIOXIDE 19 mmol/L (22-30); CHLORIDE 109 mmol/L (98-107); GLUCOSE 109 mg/dL (75-110)
[2020-03-17 05:31] LABS: ABSOLUTE LYMPHOCYTES# (MANUAL) 0.7 10^3/uL (0.5-4.7); ABSOLUTE MONOCYTES # (MANUAL) 0.4 10^3/uL (0.1-1.4); BASOPHILS % (MANUAL) 0 % (0-2); EOSINOPHILS % (MANUAL) 0 % (0-6); LYMPHOCYTES % (MANUAL) 13 % (13-45); MONOCYTES % (MANUAL) 7 % (3-13); SEGMENTED NEUTROPHILS % (MAN) 80 % (42-78); TOTAL CELLS COUNTED 100
[2020-03-17 05:32] LABS: ANISOCYTOSIS 1+; PLATELET COMMENT ADEQUATE
[2020-03-17 05:35] LABS: POTASSIUM 3.5 mmol/L (3.6-5.0)
[2020-03-17 06:46] LABS: APPEARANCE,URINE SLIGHTLY-CLOUDY; BILIRUBIN,URINE NEGATIVE (NEGATIVE); COLOR,URINE YELLOW; GLUCOSE, URINE NEGATIVE (NEGATIVE); KETONES,URINE NEGATIVE (NEGATIVE); LEUKOCYTE ESTERASE,URINE NEGATIVE (NEGATIVE); NITRITE,URINE NEGATIVE (NEGATIVE); PROTEIN,URINE NEGATIVE (NEGATIVE); URINE SPECIFIC GRAVITY 1.017; UROBILINOGEN,URINE NEGATIVE mg/dL (<2.0)
[2020-03-17] MEDS ORDERED: SODIUM POLYSTYRENE SULFONATE 15 GM/60 ML PO ONE (09:39)
[2020-03-17] MEDS: INSULIN LISPRO 100 UNIT/ML 3 ML VIAL SUBCUT SCH ×4 (09:51→21:37)
[2020-03-17] MEDS: ASCORBIC ACID 500 MG TABLET PO SCH ×2 (09:53→17:05)
[2020-03-17] MEDS: SOTALOL HCL 80 MG TABLET PO SCH (09:53)
[2020-03-17] MEDS: HYDROXYUREA 500 MG CAPSULE PO SCH (09:53)
[2020-03-17] MEDS: ZINC SULFATE 220 MG CAPSULE PO SCH (09:53)
[2020-03-17] MEDS: ESCITALOPRAM OXALATE 10 MG TABLET PO SCH (09:53)
[2020-03-17] MEDS: ENOXAPARIN SODIUM INJ 60 MG/0.6 ML DISP.SYRIN SUBCUT SCH ×2 (09:54→21:52)
--- NOTE | 2020-03-17 10:42 | PDOC PROGRESS REPORT ---
Subjective Progress Note for:: 03/17/20 Subjective:: GABRIELE RODRIGUEZ is a 59 year old female past medical history of th rombocytosis, CAD status post [place] 2010 and pacemaker placement, hypertension, diabetes, presented to ED complaining of 1 week of generalized fatigue and weakness, shortness of breath associated with dry cough, nonbloody diarrhea subjective fever. A week ago patient went to her PCP and It was suspected and patient was tested for COVID and was started on azithromycin, today patient was notified by her PCP that her COVID test had come back positive and she needed to report to ED. Denies any chest pain, headache, vision changes, loss of taste, loss of smell, focal neurological symptoms, orthopnea, proximal nocturnal dyspnea, weight gain, weight loss, abdominal pain, constipation or any urinary symptoms. In the ED she was noted to be febrile, tachycardic and tachypneic hyperkalemic, and chest x-ray showing multilobar pneumonia. Hospitalist was consulted for admission. 03/16/2020. No acute events overnight. Comfortably resting in bed apparent distress, denies any fever, chills, nausea, vomiting, diarrhea, constipation or any urinary symptoms. Ambulatory and having normal bowel and bladder movements. If remains asymptomatic will discharge home tomorrow. 10/16/2019. Yesterday patient was developing hives after receiving ceftriaxone, was given IV Benadryl with resolution of hives and ceftriaxone was DC'd, this morning patient seems to be more respiratory distress, she is noted to be tachypneic and getting winded with trying to talk in full sentences, denies any chest pain, fever, chills, nausea, vomiting. Reason For Visit: RESPIRATORY FAILURE WITH HYPOXIA, COVID-19 Physical Exam Vital Signs: Temp Pulse Resp BP Pulse Ox 100.2 F 75 16 108/54 L 91 L 03/17/20 08:07 03/17/20 08:07 03/17/20 08:07 03/17/20 08:07 03/17/20 08:07 Intake & Output 03/16/20 03/17/20 03/18/20 06:59 06:59 06:59 Intake Total 1050 3300 Balance 1050 3300 Weight 65 kg 69.4 kg General appearance: PRESENT: no acute distress, mild distress, well-developed, well-nourished Head exam: PRESENT: atraumatic, normocephalic Respiratory exam: PRESENT: accessory muscle use, decreased breath sounds, symme trical. ABSENT: rales, rhonchi, wheezes Cardiovascular exam: PRESENT: RRR. ABSENT: diastolic murmur, rubs, systolic murmur GI/Abdominal exam: PRESENT: normal bowel sounds, soft. ABSENT: distended, guarding, mass, organolmegaly, rebound, tenderness Neurological exam: PRESENT: alert, awake, oriented to person, oriented to place, oriented to time, oriented to situation, CN II-XII grossly intact. ABSENT: motor sensory deficit Skin exam: PRESENT: urticaria - Resolving Results Laboratory Results: 03/17/20 04:25 03/17/20 04:25 03/15/20 03/17/20 03/17/20 15:30 04:25 04:25 WBC 5.3 5.7 RBC 4.19 3.85 Hgb 15.5 14.3 Hct 45.3 41.6 MCV 108 H 108 H MCH 37.0 H 37.2 H MCHC 34.2 34.5 RDW 15.3 H 15.5 H Plt Count 375 389 Seg Neutrophils % Not Reportable Sodium 136.9 L Potassium 3.5 L D Chloride 109 H Carbon Dioxide 19 L Anion Gap 9 BUN 15 Creatinine 0.58 Est GFR ( Amer) > 60 Glucose 109 Calcium 8.7 Magnesium 2.4 H Urine Color Urine Appearance Urine pH Ur Specific [place] Urine Protein Urine Glucose (UA) Urine Ketones Urine Blood Urine Nitrite Ur Leukocyte Esterase Urine WBC (Auto) Urine RBC (Auto) 03/17/20 05:41 WBC RBC Hgb Hct MCV MCH MCHC RDW Plt Count Seg Neutrophils % Sodium Potassium Chloride Carbon Dioxide Anion Gap BUN Creatinine Est GFR ( Amer) Glucose Calcium Magnesium Urine Color YELLOW Urine Appearance SLIGHTLY-CLOUDY Urine pH 6.0 Ur Specific [place] 1.017 Urine Protein NEGATIVE Urine Glucose (UA) NEGATIVE Urine Ketones NEGATIVE Urine Blood NEGATIVE Urine Nitrite NEGATIVE Ur Leukocyte Esterase NEGATIVE Urine WBC (Auto) 2 Urine RBC (Auto) 0 03/15/20 03/15/20 03/16/20 15:30 15:30 08:30 Creatine Kinase 37 CK-MB (CK-2) < 0.22 Troponin I 0.017 < 0.012 NT-Pro-B Natriuret Pep 932 H Impressions: Chest X-Ray 03/15/20 14:42 IMPRESSION: Multi lobar pneumonia. Assessment and Plan - Diagnosis (1) Multifocal pneumonia Is this a current diagnosis for this admission?: Yes Plan: Likely due to COVID-19, superimposed bacterial pneumonia could also be a possib ility. Chest x-ray positive for multifocal pneumonia. WBC WNL. Low-grade fever. Day 3 IV antibiotics. Day 3 IV azithromycin. Received 2 days of IV ceftriaxone. DC IV ceftriaxone patient developed hives. Day 3 IV dexamethasone. Day 3 therapeutic Lovenox. Day 1 IV vancomycin. Continue empiric IV antibiotics, sputum culture, supplemental oxygen, duo nebs, weight dosed Lovenox, incentive spirometry, flutter valve. (2) CAD (coronary artery disease) Qualifiers: Coronary Disease-Associated Artery/Lesion type: [place] artery [place] vs. transplanted heart: [place] heart Associated angina: without angina Qualified Code(s): I25.10 - Atherosclerotic heart disease of [place] coronary artery without angina pectoris Is this a current diagnosis for this admission?: Yes Plan: Denies any anginal symptoms. Status post [place] 2010. Pacemaker in place. Mildly elevated troponin likely due to demand mismatch. Resume home meds. Trend troponins. Aspirin and statin. (3) Thrombocytosis Is this a current diagnosis for this admission?: Yes Plan: Platelets WNL. History of thrombocytosis. On hydroxyurea. Resume home meds. Outpatient PCP and hematology follow-up. (4) Hypertension Is this a current diagnosis for this admission?: Yes Plan: Euvolemic. Normotensive. Currently not on any antihypertensive meds. Monitor vitals. PRN IV hydralazine and IV metoprolol. (5) COVID-19 Is this a current diagnosis for this admission?: Yes Plan: As per. (6) Hyperkalemia Is this a current diagnosis for this admission?: Yes Plan: Resolved. No acute EKG changes. Hyperkalemia protocol. (7) Diabetes Qualifiers: Diabetes mellitus type: type 2 Is this a current diagnosis for this admission?: Yes Plan: Controlled. Takes metformin at home. Continue diabetic diet. Sliding scale insulin. Accu-Chek. Hypoglycemia protocol. - Time Time Spent with patient: 35 or more minutes Medications reviewed and adjusted accordingly: Yes Anticipated Discharge Disposition: Home, Self Care Anticipated Discharge Timeframe: within 48 hours
[2020-03-17] MEDS ORDERED: VANCOMYCIN HCL 0 MG in DEXTROSE 5%-WATER 250 ML IV NR (10:45)
[2020-03-17] MEDS: FLUTICASONE/VILANTEROL 200-25 MCG/DOSE IH SCH (12:22)
[2020-03-17] MEDS: ACETAMINOPHEN 325 MG TABLET PO PRN (12:26)
[2020-03-17] MEDS: IPRATROPIUM/ALBUTEROL 0.5-2.5 MG/3 ML AMPUL NEB SCH ×2 (13:46→20:15)
[2020-03-17] MEDS: VANCOMYCIN HCL 1,250 MG in DEXTROSE 5%-WATER 250 ML IV SCH (14:09)
[2020-03-17] MEDS: NORMAL SALINE 1000 ML 1,000 ML IV PRN (16:20)
[2020-03-17] MEDS: TEMAZEPAM 7.5 MG CAPSULE PO SCH (21:52)
[2020-03-17] MEDS ORDERED: REMDESIVIR (EUA) 200 MG in NORMAL SALINE 250 ML IV ONE (22:00)
[2020-03-18] MEDS: ACETAMINOPHEN 325 MG TABLET PO PRN ×3 (00:12→16:42)
[2020-03-18] MEDS: VANCOMYCIN HCL 1,250 MG in DEXTROSE 5%-WATER 250 ML IV SCH ×3 (00:13→22:55)
[2020-03-18] MEDS: NORMAL SALINE 1000 ML 1,000 ML IV PRN ×2 (04:45→14:58)
[2020-03-18] MEDS: DEXAMETHASONE SOD PHOSPHATE INJ 4 MG/1 ML VIAL IV SCH ×3 (05:35→22:13)
[2020-03-18 05:40] LABS: HEMOGLOBIN 13.4 g/dL (12.0-15.5)
[2020-03-18 06:05] LABS: HEMATOCRIT 39.2 % (36.0-47.0); MEAN CORPUSCULAR HEMOGLOBIN 36.5 pg (27.0-33.4); MEAN CORPUSCULAR HGB CONC 34.1 g/dL (32.0-36.0); MEAN CORPUSCULAR VOLUME 107 fl (80-97); PLATELET COUNT 315 10^3/uL (150-450); RED BLOOD COUNT 3.66 10^6/uL (3.72-5.28); RED CELL DISTRIBUTION WIDTH 15.3 % (11.5-14.0)
[2020-03-18 06:12] LABS: ALBUMIN 2.5 g/dL (3.5-5.0); ALKALINE PHOSPHATASE 54 U/L (38-126); ANION GAP 7 (5-19); ASPARTATE AMINO TRANSFERASE 60 U/L (14-36); BILIRUBIN,TOTAL 0.3 mg/dL (0.2-1.3); BLOOD UREA NITROGEN 12 mg/dL (7-20); CARBON DIOXIDE 19 mmol/L (22-30); CHLORIDE 109 mmol/L (98-107); GLUCOSE 114 mg/dL (75-110); TOTAL PROTEIN 5.6 g/dL (6.3-8.2)
[2020-03-18 06:42] LABS: WHITE BLOOD COUNT 2.8 10^3/uL (4.0-10.5)
[2020-03-18 06:47] LABS: ABSOLUTE LYMPHOCYTES# (MANUAL) 0.3 10^3/uL (0.5-4.7); ABSOLUTE MONOCYTES # (MANUAL) 0.2 10^3/uL (0.1-1.4); BASOPHILS % (MANUAL) 0 % (0-2); EOSINOPHILS % (MANUAL) 0 % (0-6); LYMPHOCYTES % (MANUAL) 11 % (13-45); MONOCYTES % (MANUAL) 7 % (3-13); SEGMENTED NEUTROPHILS % (MAN) 82 % (42-78); TOTAL CELLS COUNTED 100
[2020-03-18 06:48] LABS: PLATELET COMMENT ADEQUATE
[2020-03-18 06:49] LABS: ANISOCYTOSIS SLIGHT
[2020-03-18 06:51] LABS: POLYCHROMASIA SLIGHT; SCHISTOCYTES SLIGHT
[2020-03-18 06:55] LABS: BURR CELLS SLIGHT
[2020-03-18] MEDS: INSULIN LISPRO 100 UNIT/ML 3 ML VIAL SUBCUT SCH ×4 (07:55→22:53)
[2020-03-18] MEDS: IPRATROPIUM/ALBUTEROL 0.5-2.5 MG/3 ML AMPUL NEB SCH ×3 (08:32→20:35)
[2020-03-18] MEDS: FAMOTIDINE 20 MG TABLET PO SCH ×2 (10:10→22:13)
[2020-03-18] MEDS: HYDROXYUREA 500 MG CAPSULE PO SCH (10:11)
[2020-03-18] MEDS: ENOXAPARIN SODIUM INJ 60 MG/0.6 ML DISP.SYRIN SUBCUT SCH ×2 (10:11→22:13)
[2020-03-18] MEDS: ASCORBIC ACID 500 MG TABLET PO SCH ×2 (10:11→17:15)
[2020-03-18] MEDS: ZINC SULFATE 220 MG CAPSULE PO SCH (10:11)
[2020-03-18] MEDS: SOTALOL HCL 80 MG TABLET PO SCH (10:12)
[2020-03-18] MEDS: FLUTICASONE/VILANTEROL 200-25 MCG/DOSE IH SCH (10:14)
[2020-03-18] MEDS: ESCITALOPRAM OXALATE 10 MG TABLET PO SCH (10:19)
--- NOTE | 2020-03-18 11:01 | PDOC PROGRESS REPORT ---
Subjective Progress Note for:: 03/18/20 Subjective:: GABRIELE RODRIGUEZ is a 59 year old female past medical history of th rombocytosis, CAD status post [place] 2010 and pacemaker placement, hypertension, diabetes, presented to ED complaining of 1 week of generalized fatigue and weakness, shortness of breath associated with dry cough, nonbloody diarrhea subjective fever. A week ago patient went to her PCP and It was suspected and patient was tested for COVID and was started on azithromycin, today patient was notified by her PCP that her COVID test had come back positive and she needed to report to ED. Denies any chest pain, headache, vision changes, loss of taste, loss of smell, focal neurological symptoms, orthopnea, proximal nocturnal dyspnea, weight gain, weight loss, abdominal pain, constipation or any urinary symptoms. In the ED she was noted to be febrile, tachycardic and tachypneic hyperkalemic, and chest x-ray showing multilobar pneumonia. Hospitalist was consulted for admission. 03/16/2020. No acute events overnight. Comfortably resting in bed apparent distress, denies any fever, chills, nausea, vomiting, diarrhea, constipation or any urinary symptoms. Ambulatory and having normal bowel and bladder movements. If remains asymptomatic will discharge home tomorrow. 10/16/2019. Yesterday patient was developing hives after receiving ceftriaxone, was given IV Benadryl with resolution of hives and ceftriaxone was DC'd, this morning patient seems to be more respiratory distress, she is noted to be tachypneic and getting winded with trying to talk in full sentences, denies any chest pain, fever, chills, nausea, vomiting. 03/18/2020. No acute events overnight. Significant improvement, on 2 L nasal cannula SPO2 WNL, denies any fever, chills, nausea, vomiting, diarrhea, constipation or any urinary symptoms. Possible DC home tomorrow. Will ambulate today to see if she needs oxygen otherwise will wean off oxygen. Reason For Visit: RESPIRATORY FAILURE WITH HYPOXIA, COVID-19 Physical Exam Vital Signs: Temp Pulse Resp BP Pulse Ox 98.1 F 79 20 100/63 92 03/18/20 08:47 03/18/20 08:47 03/18/20 08:47 03/18/20 08:47 03/18/20 08:47 Intake & Output 03/17/20 03/18/20 03/19/20 06:59 06:59 06:59 Intake Total 3300 2420 Balance 3300 2420 Weight 69.4 kg 69.4 kg General appearance: PRESENT: no acute distress, well-developed, well-nourished Head exam: PRESENT: atraumatic, normocephalic Neck exam: ABSENT: carotid bruit, JVD, lymphadenopathy, thyromegaly Respiratory exam: PRESENT: clear to auscultation [place]. ABSENT: rales, rhonchi, wheezes Pulses: PRESENT: normal [place] pedis pul GI/Abdominal exam: PRESENT: normal bowel sounds, soft. ABSENT: distended, guarding, mass, organolmegaly, rebound, tenderness Neurological exam: PRESENT: alert, awake, oriented to person, oriented to place, oriented to time, oriented to situation, CN II-XII grossly intact. ABSENT: motor sensory deficit Results Laboratory Results: 03/18/20 04:56 03/18/20 04:56 03/18/20 03/18/20 04:56 04:56 WBC 2.8 L D RBC 3.66 L Hgb 13.4 Hct 39.2 MCV 107 H MCH 36.5 H MCHC 34.1 RDW 15.3 H Plt Count 315 Seg Neutrophils % Not Reportable Sodium 135.4 L Potassium 4.0 Chloride 109 H Carbon Dioxide 19 L Anion Gap 7 BUN 12 Creatinine 0.60 Est GFR ( Amer) > 60 Glucose 114 H Calcium 8.0 L Magnesium 2.2 Total Bilirubin 0.3 AST 60 H Alkaline Phosphatase 54 Total Protein 5.6 L Albumin 2.5 L 03/15/20 03/15/20 03/16/20 15:30 15:30 08:30 Creatine Kinase 37 CK-MB (CK-2) < 0.22 Troponin I 0.017 < 0.012 NT-Pro-B Natriuret Pep 932 H Impressions: Chest X-Ray 03/15/20 14:42 IMPRESSION: Multi lobar pneumonia. Assessment and Plan - Diagnosis (1) Multifocal pneumonia Is this a current diagnosis for this admission?: Yes Plan: Likely due to COVID-19, superimposed bacterial pneumonia could also be a possibility. Chest x-ray positive for multifocal pneumonia. WBC WNL. Low-grade fever. Day 4 IV antibiotics. Day 4 IV azithromycin. Received 2 days of IV ceftriaxone. DC IV ceftriaxone patient developed hives. Day 4 IV dexamethasone. Day 4 therapeutic Lovenox. Day 2 IV vancomycin. Continue empiric IV antibiotics, sputum culture, supplemental oxygen, duo nebs, weight dosed Lovenox, incentive spirometry, flutter valve. (2) CAD (coronary artery disease) Qualifiers: Coronary Disease-Associated Artery/Lesion type: [place] artery [place] vs. transplanted heart: [place] heart Associated angina: without angina Qualified Code(s): I25.10 - Atherosclerotic heart disease of [place] coronary artery without angina pectoris Is this a current diagnosis for this admission?: Yes Plan: Denies any anginal symptoms. Status post [place] 2010. Pacemaker in place. Mildly elevated troponin likely due to demand mismatch. Resume home meds. Trend troponins. Aspirin and statin. (3) Thrombocytosis Is this a current diagnosis for this admission?: Yes Plan: Platelets WNL. History of thrombocytosis. On hydroxyurea. Resume home meds. Outpatient PCP and hematology follow-up. (4) Hypertension Is this a current diagnosis for this admission?: Yes Plan: Euvolemic. Normotensive. Currently not on any antihypertensive meds. Monitor vitals. PRN IV hydralazine and IV metoprolol. (5) COVID-19 Is this a current diagnosis for this admission?: Yes Plan: As per. (6) Hyperkalemia Is this a current diagnosis for this admission?: Yes Plan: Resolved. No acute EKG changes. Hyperkalemia protocol. (7) Diabetes Qualifiers: Diabetes mellitus type: type 2 Is this a current diagnosis for this admission?: Yes Plan: Controlled. Takes metformin at home. Continue diabetic diet. Sliding scale insulin. Accu-Chek. Hypoglycemia protocol. - Time Time Spent with patient: 25-34 minutes Medications reviewed and adjusted accordingly: Yes Anticipated Discharge Disposition: Home, Self Care Anticipated Discharge Timeframe: within 24 hours
[2020-03-18] MEDS: TEMAZEPAM 7.5 MG CAPSULE PO SCH (22:13)
[2020-03-18] MEDS: AZITHROMYCIN 500 MG in DEXTROSE 5%-WATER 250 ML IV SCH (22:15)
[2020-03-18] MEDS: REMDESIVIR (EUA) 100 MG in NORMAL SALINE 250 ML IV SCH (22:16)
[2020-03-19 05:21] LABS: ABSOLUTE LYMPHOCYTES (AUTO) 0.2 10^3/uL (0.5-4.7); ABSOLUTE MONOCYTES (AUTO) 0.2 10^3/uL (0.1-1.4); BASOPHILS % (AUTO) 0.1 % (0-2); MONOCYTES % (AUTO) 6.4 % (3-13); TOTAL CELLS COUNTED % (AUTO) 100 %
[2020-03-19 05:31] LABS: ABSOLUTE NEUT (AUTO) 3.1 10^3/uL (1.7-8.2); EOSINOPHILS % (AUTO) 0.1 % (0-6); HEMATOCRIT 43.9 % (36.0-47.0); HEMOGLOBIN 15.2 g/dL (12.0-15.5); LYMPHOCYTES % (AUTO) 6.2 % (13-45); MEAN CORPUSCULAR HEMOGLOBIN 37.2 pg (27.0-33.4); MEAN CORPUSCULAR HGB CONC 34.6 g/dL (32.0-36.0); MEAN CORPUSCULAR VOLUME 107 fl (80-97); PLATELET COUNT 297 10^3/uL (150-450); RED BLOOD COUNT 4.08 10^6/uL (3.72-5.28); RED CELL DISTRIBUTION WIDTH 15.8 % (11.5-14.0); SEGMENTED NEUTROPHILS % (AUTO) 87.2 % (42-78); WHITE BLOOD COUNT 3.6 10^3/uL (4.0-10.5)
[2020-03-19 05:39] LABS: ALBUMIN 2.9 g/dL (3.5-5.0); ALKALINE PHOSPHATASE 58 U/L (38-126); ANION GAP 6 (5-19); ASPARTATE AMINO TRANSFERASE 55 U/L (14-36); BILIRUBIN,TOTAL 0.5 mg/dL (0.2-1.3); BLOOD UREA NITROGEN 13 mg/dL (7-20); CALCIUM 8.4 mg/dL (8.4-10.2); CARBON DIOXIDE 22 mmol/L (22-30); CHLORIDE 108 mmol/L (98-107); GLUCOSE 125 mg/dL (75-110); POTASSIUM 3.6 mmol/L (3.6-5.0); TOTAL PROTEIN 6.3 g/dL (6.3-8.2)
[2020-03-19] MEDS: DEXAMETHASONE SOD PHOSPHATE INJ 4 MG/1 ML VIAL IV SCH ×3 (05:53→21:46)
[2020-03-19] MEDS: ACETAMINOPHEN 325 MG TABLET PO PRN ×2 (07:51→15:08)
[2020-03-19] MEDS: INSULIN LISPRO 100 UNIT/ML 3 ML VIAL SUBCUT SCH ×4 (07:52→21:46)
[2020-03-19] MEDS: IPRATROPIUM/ALBUTEROL 0.5-2.5 MG/3 ML AMPUL NEB SCH ×3 (08:02→20:57)
--- NOTE | 2020-03-19 09:53 | PDOC PROGRESS REPORT ---
Subjective Progress Note for:: 03/19/20 Subjective:: GABRIELE RODRIGUEZ is a 59 year old female past medical history of th rombocytosis, CAD status post [place] 2010 and pacemaker placement, hypertension, diabetes, presented to ED complaining of 1 week of generalized fatigue and weakness, shortness of breath associated with dry cough, nonbloody diarrhea subjective fever. A week ago patient went to her PCP and It was suspected and patient was tested for COVID and was started on azithromycin, today patient was notified by her PCP that her COVID test had come back positive and she needed to report to ED. Denies any chest pain, headache, vision changes, loss of taste, loss of smell, focal neurological symptoms, orthopnea, proximal nocturnal dyspnea, weight gain, weight loss, abdominal pain, constipation or any urinary symptoms. In the ED she was noted to be febrile, tachycardic and tachypneic hyperkalemic, and chest x-ray showing multilobar pneumonia. Hospitalist was consulted for admission. 03/16/2020. No acute events overnight. Comfortably resting in bed apparent distress, denies any fever, chills, nausea, vomiting, diarrhea, constipation or any urinary symptoms. Ambulatory and having normal bowel and bladder movements. If remains asymptomatic will discharge home tomorrow. 10/16/2019. Yesterday patient was developing hives after receiving ceftriaxone, was given IV Benadryl with resolution of hives and ceftriaxone was DC'd, this morning patient seems to be more respiratory distress, she is noted to be tachypneic and getting winded with trying to talk in full sentences, denies any chest pain, fever, chills, nausea, vomiting. 03/18/2020. No acute events overnight. Significant improvement, on 2 L nasal cannula SPO2 WNL, denies any fever, chills, nausea, vomiting, diarrhea, constipation or any urinary symptoms. Possible DC home tomorrow. Will ambulate today to see if she needs oxygen otherwise will wean off oxygen. 03/19/2020. Patient has been febrile and needing more oxygen, on BiPAP this morning, SPO2 low 90s on 50% oxygen, overall patient is stating that she is doing okay, denies any fever, chills, nausea, vomiting, diarrhea, constipation or any urinary symptoms. I have asked her if she would like us to get her effervescent plasma she is stating that she needs to talk to her family. Reason For Visit: RESPIRATORY FAILURE WITH HYPOXIA, COVID-19 Physical Exam Vital Signs: Temp Pulse Resp BP Pulse Ox 102.5 F H 93 22 H 139/72 H 90 L 03/19/20 08:00 03/19/20 08:00 03/19/20 08:00 03/19/20 07:45 03/19/20 08:00 Intake & Output 03/18/20 03/19/20 03/20/20 06:59 06:59 06:59 Intake Total 2420 1735 Output Total 200 Balance 2420 1535 Weight 69.4 kg 69.4 kg General appearance: PRESENT: no acute distress, mild distress, well-developed, well-nourished Head exam: PRESENT: atraumatic, normocephalic Respiratory exam: PRESENT: clear to auscultation tristan, tachypnea. ABSENT: rales, rhonchi, wheezes Cardiovascular exam: PRESENT: RRR. ABSENT: diastolic murmur, rubs, systolic murmur GI/Abdominal exam: PRESENT: normal bowel sounds, soft. ABSENT: distended, guarding, mass, organolmegaly, rebound, tenderness Neurological exam: PRESENT: alert, awake, oriented to person, oriented to place, oriented to time, oriented to situation, CN II-XII grossly intact. ABSENT: motor sensory deficit Results Laboratory Results: 03/19/20 04:37 03/19/20 04:37 03/19/20 03/19/20 04:37 04:37 WBC 3.6 L RBC 4.08 Hgb 15.2 Hct 43.9 MCV 107 H MCH 37.2 H MCHC 34.6 RDW 15.8 H Plt Count 297 Seg Neutrophils % 87.2 H Sodium 135.8 L Potassium 3.6 Chloride 108 H Carbon Dioxide 22 Anion Gap 6 BUN 13 Creatinine 0.57 Est GFR ( Amer) > 60 Glucose 125 H Calcium 8.4 Magnesium 2.5 H Total Bilirubin 0.5 AST 55 H Alkaline Phosphatase 58 Total Protein 6.3 Albumin 2.9 L 03/15/20 17:50 Blood Blood Culture - Final Staphylococcus Epidermidis 03/15/20 03/15/20 03/16/20 15:30 15:30 08:30 Creatine Kinase 37 CK-MB (CK-2) < 0.22 Troponin I 0.017 < 0.012 NT-Pro-B Natriuret Pep 932 H Impressions: Chest X-Ray 03/15/20 14:42 IMPRESSION: Multi lobar pneumonia. Assessment and Plan - Diagnosis (1) Multifocal pneumonia Is this a current diagnosis for this admission?: Yes Plan: Likely due to COVID-19, superimposed bacterial pneumonia could also be a po ssibility. Chest x-ray positive for multifocal pneumonia. WBC WNL. Low-grade fever. Day 5 IV antibiotics. Day 5 IV azithromycin. Received 2 days of IV ceftriaxone. DC IV ceftriaxone patient developed hives. Day 5 IV dexamethasone. Day 5 therapeutic Lovenox. Day 3 IV vancomycin. Day 3 p.o. remdisivir Continue empiric IV antibiotics, sputum culture, supplemental oxygen, duo nebs, weight dosed Lovenox, incentive spirometry, flutter valve. (2) CAD (coronary artery disease) Qualifiers: Coronary Disease-Associated Artery/Lesion type: [place] artery [place] vs. transplanted heart: [place] heart Associated angina: without angina Qualified Code(s): I25.10 - Atherosclerotic heart disease of [place] coronary artery without angina pectoris Is this a current diagnosis for this admission?: Yes Plan: Denies any anginal symptoms. Status post [place] 2010. Pacemaker in place. Mildly elevated troponin likely due to demand mismatch. Resume home meds. Trend troponins. Aspirin and statin. (3) Thrombocytosis Is this a current diagnosis for this admission?: Yes Plan: Platelets WNL. History of thrombocytosis. On hydroxyurea. Resume home meds. Outpatient PCP and hematology follow-up. (4) Hypertension Is this a current diagnosis for this admission?: Yes Plan: Euvolemic. Normotensive. Currently not on any antihypertensive meds. Monitor vitals. PRN IV hydralazine and IV metoprolol. (5) COVID-19 Is this a current diagnosis for this admission?: Yes Plan: As per. (6) Hyperkalemia Is this a current diagnosis for this admission?: Yes Plan: Resolved. No acute EKG changes. Hyperkalemia protocol. (7) Diabetes Qualifiers: Diabetes mellitus type: type 2 Is this a current diagnosis for this admission?: Yes Plan: Controlled. Takes metformin at home. Continue diabetic diet. Sliding scale insulin. Accu-Chek. Hypoglycemia protocol. (8) Gram-positive bacteremia Is this a current diagnosis for this admission?: Yes Plan: Blood culture 1/2 bottles positive for coag negative Staphylococcus epidermidis methicillin-resistant gene positive. Day 3 IV vancomycin. Repeat blood cultures negative so far. - Time Time Spent with patient: 25-34 minutes Medications reviewed and adjusted accordingly: Yes Anticipated Discharge Disposition: Home, Self Care Anticipated Discharge Timeframe: within 36 hours
[2020-03-19 10:49] LABS: VANCOMYCIN,TROUGH 6.9 ug/mL (5.0-20.0)
[2020-03-19] MEDS: SOTALOL HCL 80 MG TABLET PO SCH (11:59)
[2020-03-19] MEDS: FAMOTIDINE 20 MG TABLET PO SCH ×2 (11:59→21:46)
[2020-03-19] MEDS: HYDROXYUREA 500 MG CAPSULE PO SCH (11:59)
[2020-03-19] MEDS: ASCORBIC ACID 500 MG TABLET PO SCH ×2 (11:59→18:42)
[2020-03-19] MEDS: VANCOMYCIN HCL 1,250 MG in DEXTROSE 5%-WATER 250 ML IV SCH ×2 (12:00→18:43)
[2020-03-19] MEDS: ESCITALOPRAM OXALATE 10 MG TABLET PO SCH (12:00)
[2020-03-19] MEDS: ZINC SULFATE 220 MG CAPSULE PO SCH (12:00)
[2020-03-19] MEDS: ENOXAPARIN SODIUM INJ 60 MG/0.6 ML DISP.SYRIN SUBCUT SCH ×2 (12:00→21:46)
[2020-03-19] MEDS: FLUTICASONE/VILANTEROL 200-25 MCG/DOSE IH SCH (12:01)
[2020-03-19] MEDS: NORMAL SALINE 1000 ML 1,000 ML IV PRN (12:27)
[2020-03-19] MEDS ORDERED: MORPHINE SULFATE 10 MG/ML INJ ONE (15:24)
[2020-03-19] MEDS: DEXTROSE 5%-NORMAL SALINE 1,000 ML IV PRN (15:45)
[2020-03-19 16:06] LABS: ARTERIAL BLOOD BASE EXCESS -5.2 mmol/L; ARTERIAL BLOOD FIO2 65%; ARTERIAL BLOOD H2CO3 0.72 mmol/L (1.05-1.35); ARTERIAL BLOOD HCO3 16.5 mmol/L (20-24); ARTERIAL BLOOD O2 SATURATION 86.7 % (94-98); ARTERIAL BLOOD PH 7.45 (7.35-7.45); ARTERIAL BLOOD TOTAL CO2 17.2 mmol/L (21-25)
[2020-03-19] MEDS: MORPHINE SULFATE 10 MG/ML INJ IV PRN ×2 (16:15→21:42)
[2020-03-19] MEDS ORDERED: MORPHINE SULFATE 10 MG/ML INJ IV ONE (17:30)
[2020-03-19 17:34] LABS: ARTERIAL BLOOD BASE EXCESS -4.5 mmol/L; ARTERIAL BLOOD FIO2 75%; ARTERIAL BLOOD H2CO3 0.81 mmol/L (1.05-1.35); ARTERIAL BLOOD HCO3 17.9 mmol/L (20-24); ARTERIAL BLOOD O2 SATURATION 90.2 % (94-98); ARTERIAL BLOOD PCO2 26.9 mmHg (35-45); ARTERIAL BLOOD PH 7.44 (7.35-7.45); ARTERIAL BLOOD PO2 54.6 mmHg (80-100); ARTERIAL BLOOD TOTAL CO2 18.8 mmol/L (21-25)
[2020-03-19] MEDS: REMDESIVIR (EUA) 100 MG in NORMAL SALINE 250 ML IV SCH (21:43)
[2020-03-19] MEDS: TEMAZEPAM 7.5 MG CAPSULE PO SCH (21:46)
[2020-03-19] MEDS: AZITHROMYCIN 500 MG in DEXTROSE 5%-WATER 250 ML IV SCH (21:47)
[2020-03-20] MEDS: MORPHINE SULFATE 10 MG/ML INJ IV PRN ×7 (00:56→23:17)
[2020-03-20] MEDS: VANCOMYCIN HCL 1,250 MG in DEXTROSE 5%-WATER 250 ML IV SCH ×2 (01:28→12:01)
[2020-03-20] MEDS: DEXAMETHASONE SOD PHOSPHATE INJ 4 MG/1 ML VIAL IV SCH ×3 (05:10→21:12)
[2020-03-20 07:12] LABS: ARTERIAL BLOOD BASE EXCESS -2.4 mmol/L; ARTERIAL BLOOD H2CO3 0.92 mmol/L (1.05-1.35); ARTERIAL BLOOD HCO3 20.4 mmol/L (20-24); ARTERIAL BLOOD O2 SATURATION 86.9 % (94-98); ARTERIAL BLOOD PCO2 30.4 mmHg (35-45); ARTERIAL BLOOD PH 7.45 (7.35-7.45); ARTERIAL BLOOD PO2 49.2 mmHg (80-100); ARTERIAL BLOOD TOTAL CO2 21.4 mmol/L (21-25)
[2020-03-20 07:13] LABS: ARTERIAL BLOOD FIO2 100%
[2020-03-20] MEDS ORDERED: NORMAL SALINE 250 ML IV PRN ×2 (07:39)
[2020-03-20] MEDS: INSULIN LISPRO 100 UNIT/ML 3 ML VIAL SUBCUT SCH ×4 (08:29→22:10)
[2020-03-20] MEDS: IPRATROPIUM/ALBUTEROL 0.5-2.5 MG/3 ML AMPUL NEB SCH ×3 (08:50→19:37)
[2020-03-20] MEDS: DEXTROSE 5%-NORMAL SALINE 1,000 ML IV PRN (08:52)
[2020-03-20 09:07] LABS: HEMATOCRIT 43.6 % (36.0-47.0); HEMOGLOBIN 14.9 g/dL (12.0-15.5); MEAN CORPUSCULAR HEMOGLOBIN 36.4 pg (27.0-33.4); MEAN CORPUSCULAR HGB CONC 34.2 g/dL (32.0-36.0); MEAN CORPUSCULAR VOLUME 107 fl (80-97); PLATELET COUNT 339 10^3/uL (150-450); RED BLOOD COUNT 4.09 10^6/uL (3.72-5.28); RED CELL DISTRIBUTION WIDTH 15.3 % (11.5-14.0); WHITE BLOOD COUNT 7.1 10^3/uL (4.0-10.5)
[2020-03-20 09:28] LABS: ALBUMIN 2.2 g/dL (3.5-5.0); ALKALINE PHOSPHATASE 57 U/L (38-126); ANION GAP 5 (5-19); ASPARTATE AMINO TRANSFERASE 53 U/L (14-36); BILIRUBIN,TOTAL 0.4 mg/dL (0.2-1.3); BLOOD UREA NITROGEN 10 mg/dL (7-20); CALCIUM 7.7 mg/dL (8.4-10.2); CARBON DIOXIDE 24 mmol/L (22-30); CHLORIDE 101 mmol/L (98-107); GLUCOSE 135 mg/dL (75-110); POTASSIUM 4.1 mmol/L (3.6-5.0); TOTAL PROTEIN 5.2 g/dL (6.3-8.2)
[2020-03-20 09:30] LABS: VANCOMYCIN,TROUGH 19.7 ug/mL (5.0-20.0)
[2020-03-20] MEDS: HYDROXYUREA 500 MG CAPSULE PO SCH (11:40)
[2020-03-20] MEDS: FLUTICASONE/VILANTEROL 200-25 MCG/DOSE IH SCH (11:40)
[2020-03-20] MEDS: ENOXAPARIN SODIUM INJ 60 MG/0.6 ML DISP.SYRIN SUBCUT SCH ×2 (11:41→21:12)
[2020-03-20] MEDS: ASCORBIC ACID 500 MG TABLET PO SCH ×2 (11:41→18:06)
[2020-03-20] MEDS: FAMOTIDINE 20 MG TABLET PO SCH ×2 (11:41→21:12)
[2020-03-20] MEDS: ZINC SULFATE 220 MG CAPSULE PO SCH (11:41)
[2020-03-20] MEDS: SOTALOL HCL 80 MG TABLET PO SCH (11:41)
[2020-03-20] MEDS: ESCITALOPRAM OXALATE 10 MG TABLET PO SCH (11:42)
--- NOTE | 2020-03-20 12:00 | PDOC PROGRESS REPORT ---
Subjective Progress Note for:: 03/20/20 Subjective:: GABRIELE RODRIGUEZ is a 59 year old female past medical history of th rombocytosis, CAD status post [place] 2010 and pacemaker placement, hypertension, diabetes, presented to ED complaining of 1 week of generalized fatigue and weakness, shortness of breath associated with dry cough, nonbloody diarrhea subjective fever. A week ago patient went to her PCP and It was suspected and patient was tested for COVID and was started on azithromycin, today patient was notified by her PCP that her COVID test had come back positive and she needed to report to ED. Denies any chest pain, headache, vision changes, loss of taste, loss of smell, focal neurological symptoms, orthopnea, proximal nocturnal dyspnea, weight gain, weight loss, abdominal pain, constipation or any urinary symptoms. In the ED she was noted to be febrile, tachycardic and tachypneic hyperkalemic, and chest x-ray showing multilobar pneumonia. Hospitalist was consulted for admission. 03/16/2020. No acute events overnight. Comfortably resting in bed apparent distress, denies any fever, chills, nausea, vomiting, diarrhea, constipation or any urinary symptoms. Ambulatory and having normal bowel and bladder movements. If remains asymptomatic will discharge home tomorrow. 10/16/2019. Yesterday patient was developing hives after receiving ceftriaxone, was given IV Benadryl with resolution of hives and ceftriaxone was DC'd, this morning patient seems to be more respiratory distress, she is noted to be tachypneic and getting winded with trying to talk in full sentences, denies any chest pain, fever, chills, nausea, vomiting. 03/18/2020. No acute events overnight. Significant improvement, on 2 L nasal cannula SPO2 WNL, denies any fever, chills, nausea, vomiting, diarrhea, constipation or any urinary symptoms. Possible DC home tomorrow. Will ambulate today to see if she needs oxygen otherwise will wean off oxygen. 03/19/2020. Patient has been febrile and needing more oxygen, on BiPAP this morning, SPO2 low 90s on 50% oxygen, overall patient is stating that she is doing okay, denies any fever, chills, nausea, vomiting, diarrhea, constipation or any urinary symptoms. I have asked her if she would like us to get her effervescent plasma she is stating that she needs to talk to her family. 03/20/2020. Patient is still BiPAP dependent and on FiO2 of 100% saturating low 90s and high 80s, patient is in moderate respiratory distress however still awake and alert and oriented x4, stating that she is feeling tired and fatigued otherwise denies any chest pain, fever, chills, nausea, vomiting. Has not been able to eat much as she is dependent on BiPAP. Reason For Visit: RESPIRATORY FAILURE WITH HYPOXIA, COVID-19 Physical Exam Vital Signs: Temp Pulse Resp BP Pulse Ox 97.7 F 87 34 H 127/75 H 91 L 03/20/20 07:54 03/20/20 08:50 03/20/20 11:25 03/20/20 07:54 03/20/20 11:25 Intake & Output 03/19/20 03/20/20 03/21/20 06:59 06:59 06:59 Intake Total 3485 2903 Output Total 200 1100 Balance 3285 1803 Weight 69.4 kg 69.5 kg General appearance: PRESENT: no acute distress, well-developed, well-nourished, other - Moderate distress Head exam: PRESENT: atraumatic, normocephalic Respiratory exam: PRESENT: accessory muscle use, clear to auscultation tristan, symmetrical, tachypnea. ABSENT: rales, rhonchi, wheezes Cardiovascular exam: PRESENT: RRR, tachycardia. ABSENT: diastolic murmur, rubs, systolic murmur GI/Abdominal exam: PRESENT: normal bowel sounds, soft. ABSENT: distended, guarding, mass, organolmegaly, rebound, tenderness Neurological exam: PRESENT: alert, awake, oriented to person, oriented to place, oriented to time, oriented to situation Results Laboratory Results: 03/20/20 08:32 03/20/20 08:32 03/19/20 03/19/20 03/19/20 13:15 15:45 17:15 WBC RBC Hgb Hct MCV MCH MCHC RDW Plt Count Carbonic Acid 0.72 L 0.81 L HCO3/H2CO3 Ratio 22:1 22:1 ABG pH 7.45 7.44 ABG pCO2 24.0 L 26.9 L ABG pO2 48.0 L 54.6 L ABG HCO3 16.5 L 17.9 L ABG O2 Saturation 86.7 L 90.2 L ABG Base Excess -5.2 -4.5 FiO2 65% 75% Sodium Potassium Chloride Carbon Dioxide Anion Gap BUN Creatinine Est GFR ( Amer) Glucose Calcium Magnesium Total Bilirubin AST Alkaline Phosphatase Total Protein Albumin Blood Type O POSITIVE Antibody Screen NEGATIVE 03/20/20 03/20/20 03/20/20 06:15 06:55 08:32 WBC 7.1 RBC 4.09 Hgb 14.9 Hct 43.6 MCV 107 H MCH 36.4 H MCHC 34.2 RDW 15.3 H Plt Count 339 Carbonic Acid Cancelled 0.92 L HCO3/H2CO3 Ratio Cancelled 22:1 ABG pH Cancelled 7.45 ABG pCO2 Cancelled 30.4 L ABG pO2 Cancelled 49.2 L ABG HCO3 Cancelled 20.4 ABG O2 Saturation Cancelled 86.9 L ABG Base Excess Cancelled -2.4 FiO2 Cancelled 100% Sodium Potassium Chloride Carbon Dioxide Anion Gap BUN Creatinine Est GFR ( Amer) Glucose Calcium Magnesium Total Bilirubin AST Alkaline Phosphatase Total Protein Albumin Blood Type Antibody Screen 03/20/20 08:32 WBC RBC Hgb Hct MCV MCH MCHC RDW Plt Count Carbonic Acid HCO3/H2CO3 Ratio ABG pH ABG pCO2 ABG pO2 ABG HCO3 ABG O2 Saturation ABG Base Excess FiO2 Sodium 129.7 L Potassium 4.1 Chloride 101 Carbon Dioxide 24 Anion Gap 5 BUN 10 Creatinine 0.60 Est GFR ( Amer) > 60 Glucose 135 H Calcium 7.7 L Magnesium 2.1 Total Bilirubin 0.4 AST 53 H Alkaline Phosphatase 57 Total Protein 5.2 L Albumin 2.2 L Blood Type Antibody Screen 03/15/20 03/15/20 03/16/20 15:30 15:30 08:30 Creatine Kinase 37 CK-MB (CK-2) < 0.22 Troponin I 0.017 < 0.012 NT-Pro-B Natriuret Pep 932 H Impressions: Chest X-Ray 03/15/20 14:42 IMPRESSION: Multi lobar pneumonia. Assessment and Plan - Diagnosis (1) Multifocal pneumonia Is this a current diagnosis for this admission?: Yes Plan: Unchanged. BiPAP dependent on FiO2 of 100% SPO2 high high 80s and low 90s. Pat ient still alert and oriented x4. Likely due to COVID-19, superimposed bacterial pneumonia could also be a possibility. Chest x-ray positive for multifocal pneumonia. WBC WNL. Low-grade fever. Day 6 IV antibiotics. Day 6 IV azithromycin. Received 2 days of IV ceftriaxone. DC IV ceftriaxone patient developed hives. Day 6 IV dexamethasone. Day 6 therapeutic Lovenox. Day 6 IV vancomycin. Day 6 IV remdisivir Pending effervescent plasma transfusion. Continue empiric IV antibiotics, sputum culture, supplemental oxygen, duo nebs, weight dosed Lovenox, incentive spirometry, flutter valve. (2) CAD (coronary artery disease) Qualifiers: Coronary Disease-Associated Artery/Lesion type: [place] artery [place] vs. transplanted heart: [place] heart Associated angina: without angina Qualified Code(s): I25.10 - Atherosclerotic heart disease of [place] coronary artery witho ut angina pectoris Is this a current diagnosis for this admission?: Yes Plan: Denies any anginal symptoms. Status post [place] 2010. Pacemaker in place. Mildly elevated troponin likely due to demand mismatch. Resume home meds. Trend troponins. Aspirin and statin. (3) Thrombocytosis Is this a current diagnosis for this admission?: Yes Plan: Platelets WNL. History of thrombocytosis. On hydroxyurea. Resume home meds. Outpatient PCP and hematology follow-up. (4) Hypertension Is this a current diagnosis for this admission?: Yes Plan: Euvolemic. Normotensive. Currently not on any antihypertensive meds. Monitor vitals. PRN IV hydralazine and IV metoprolol. (5) COVID-19 Is this a current diagnosis for this admission?: Yes Plan: As per. (6) Hyperkalemia Is this a current diagnosis for this admission?: Yes Plan: Resolved. No acute EKG changes. Hyperkalemia protocol. (7) Diabetes Qualifiers: Diabetes mellitus type: type 2 Is this a current diagnosis for this admission?: Yes Plan: Noted to be hypoglycemic yesterday as patient is not able to eat anything due to to being dependent on BiPAP. Currently on D5 NS. Continue diabetic diet. Sliding scale insulin. Accu-Chek. Hypoglycemia protocol. (8) Gram-positive bacteremia Is this a current diagnosis for this admission?: Yes Plan: Blood culture 1/2 bottles positive for coag negative Staphylococcus epidermidis methicillin-resistant gene positive. Day 4 IV vancomycin. Repeat blood cultures negative so far. - Time Time Spent with patient: 25-34 minutes Medications reviewed and adjusted accordingly: Yes Anticipated Discharge Disposition: Home, Self Care Anticipated Discharge Timeframe: within 72 hours
[2020-03-20] MEDS ORDERED: MORPHINE SULFATE 10 MG/ML INJ IV ONE (19:20)
[2020-03-20] MEDS ORDERED: FUROSEMIDE INJ/PF 20 MG/2 ML SDV IV ONE (19:25)
[2020-03-20] MEDS ORDERED: FUROSEMIDE INJ/PF 20 MG/2 ML SDV ONE (19:29)
--- NOTE | 2020-03-20 19:59 | PDOC PROGRESS REPORT ---
Subjective Progress Note for:: 03/20/20 - 19:30 Subjective:: I was called to the bedside to assist the patient who was deteriorating. The patient's oxygen saturations were harder to keep above 90% despite increasing FiO2. BiPAP settings were increased as well. The patient was extremely tachypneic and exhibited marked increased work of breathing. Reason For Visit: RESPIRATORY FAILURE WITH HYPOXIA, COVID-19 Physical Exam Vital Signs: Temp Pulse Resp BP Pulse Ox 98.8 F 83 30 H 128/78 H 89 L 03/20/20 16:40 03/20/20 16:40 03/20/20 16:40 03/20/20 16:40 03/20/20 16:40 Intake & Output 03/19/20 03/20/20 03/21/20 06:59 06:59 06:59 Intake Total 3485 2903 1119 Output Total 200 1100 Balance 3285 1803 1119 Weight 69.4 kg 69.5 kg General appearance: PRESENT: severe distress - Moderate to severe distress Respiratory exam: PRESENT: crackles - Bilaterally, symmetrical, tachypnea, other - Due to tachypnea patient had a very short inspiratory and only slightly longer expiratory phase. ABSENT: wheezes Cardiovascular exam: PRESENT: RRR, +S1, +S2 GI/Abdominal exam: PRESENT: diminished bowel sounds, soft. ABSENT: tenderness Rectal exam: PRESENT: deferred Extremities exam: ABSENT: pedal edema Musculoskeletal exam: PRESENT: normal inspection Neurological exam: PRESENT: alert, awake, oriented to person, other - Unable to talk due to tachypnea Psychiatric exam: PRESENT: anxious Results Laboratory Results: 03/20/20 08:32 03/20/20 08:32 03/19/20 03/20/20 03/20/20 13:15 06:15 06:55 WBC RBC Hgb Hct MCV MCH MCHC RDW Plt Count Carbonic Acid Cancelled 0.92 L HCO3/H2CO3 Ratio Cancelled 22:1 ABG pH Cancelled 7.45 ABG pCO2 Cancelled 30.4 L ABG pO2 Cancelled 49.2 L ABG HCO3 Cancelled 20.4 ABG O2 Saturation Cancelled 86.9 L ABG Base Excess Cancelled -2.4 FiO2 Cancelled 100% Sodium Potassium Chloride Carbon Dioxide Anion Gap BUN Creatinine Est GFR ( Amer) Glucose Calcium Magnesium Total Bilirubin AST Alkaline Phosphatase Total Protein Albumin Blood Type O POSITIVE Antibody Screen NEGATIVE 03/20/20 03/20/20 08:32 08:32 WBC 7.1 RBC 4.09 Hgb 14.9 Hct 43.6 MCV 107 H MCH 36.4 H MCHC 34.2 RDW 15.3 H Plt Count 339 Carbonic Acid HCO3/H2CO3 Ratio ABG pH ABG pCO2 ABG pO2 ABG HCO3 ABG O2 Saturation ABG Base Excess FiO2 Sodium 129.7 L Potassium 4.1 Chloride 101 Carbon Dioxide 24 Anion Gap 5 BUN 10 Creatinine 0.60 Est GFR ( Amer) > 60 Glucose 135 H Calcium 7.7 L Magnesium 2.1 Total Bilirubin 0.4 AST 53 H Alkaline Phosphatase 57 Total Protein 5.2 L Albumin 2.2 L Blood Type Antibody Screen 03/15/20 03/15/20 03/16/20 15:30 15:30 08:30 Creatine Kinase 37 CK-MB (CK-2) < 0.22 Troponin I 0.017 < 0.012 NT-Pro-B Natriuret Pep 932 H Impressions: Chest X-Ray 03/15/20 14:42 IMPRESSION: Multi lobar pneumonia. Assessment and Plan - Diagnosis (1) Acute respiratory failure with hypoxia Is this a current diagnosis for this admission?: Yes Plan: The nurse noted increasing tachypnea with increased work of breathing. The patient was on BiPAP. Settings were 16/8. FiO2 was just placed at 100%. The patient's respiratory rate was 35. She was barely keeping oxygen saturation above 90%. Per suggestion by Dr. Koo the patient will be placed on CPAP with a pressure of 12. I have ordered an ABG prior to the change. If the patient's pH begins to fall despite the CPAP then consideration of intubation will be given. The patient has already received convalescent serum. She is on Remdesivir. She had packed red blood cell transfusion. Looking at her I's and O's it is noted that she is in a net positive fluid balance. IV fluids had been discontinued. She received 2 mg of IV morphine approximately 40 minutes ago. I did administer another milligram of morphine IV and 10 mg of Lasix IV as she may be fluid positive. A repeat ABG has been ordered for after the initiation of CPAP. (2) COVID-19 Is this a current diagnosis for this admission?: Yes Plan: Patient is COVID positive with multifocal pneumonia. As noted above she has received aggressive and comprehensive treatment including antibiotics, steroids, convalescent serum and Remdisivir. (3) Multifocal pneumonia Is this a current diagnosis for this admission?: Yes Plan: A chest x-ray has been ordered to compare to her last x-ray 5 days ago. - Time Total Critical Time (Minutes): 45 Medications reviewed and adjusted accordingly: Yes Anticipated Discharge Disposition: Unknown Anticipated Discharge Timeframe: Unknown
--- NOTE | 2020-03-20 20:58 | RADIOLOGY REPORT (SQ) ---
XR CHEST 1 VIEW HISTORY: SOB COVID +. COMPARISON: 03/15/2020 FINDINGS: The heart size is within normal limits. There is no pulmonary vascular congestion. There is diffuse bilateral airspace disease in both lungs, worsened since prior study. No pleural effusions or pneumothorax. The bony structures are preserved. There is a stable left chest wall pacemaker. IMPRESSION: Diffuse bilateral airspace disease consistent with patient's history of Covid pneumonia.
[2020-03-20] MEDS: TEMAZEPAM 7.5 MG CAPSULE PO SCH (21:12)
[2020-03-20 21:25] LABS: ARTERIAL BLOOD BASE EXCESS -2.1 mmol/L; ARTERIAL BLOOD H2CO3 1.03 mmol/L (1.05-1.35); ARTERIAL BLOOD HCO3 21.5 mmol/L (20-24); ARTERIAL BLOOD O2 SATURATION 87.3 % (94-98); ARTERIAL BLOOD PCO2 34.2 mmHg (35-45); ARTERIAL BLOOD PH 7.42 (7.35-7.45); ARTERIAL BLOOD PO2 51.3 mmHg (80-100); ARTERIAL BLOOD TOTAL CO2 22.6 mmol/L (21-25)
[2020-03-20 21:35] LABS: ARTERIAL BLOOD FIO2 100%
[2020-03-20] MEDS: AZITHROMYCIN 500 MG in DEXTROSE 5%-WATER 250 ML IV SCH (22:03)
[2020-03-20] MEDS: REMDESIVIR (EUA) 100 MG in NORMAL SALINE 250 ML IV SCH (23:13)
[2020-03-21] MEDS: VANCOMYCIN HCL 1,000 MG in DEXTROSE 5%-WATER 250 ML IV SCH ×3 (00:14→16:29)
[2020-03-21] MEDS: MORPHINE SULFATE 10 MG/ML INJ IV PRN ×2 (00:45→02:04)
[2020-03-21] MEDS: DEXAMETHASONE SOD PHOSPHATE INJ 4 MG/1 ML VIAL IV SCH ×3 (05:48→22:27)
[2020-03-21 06:18] LABS: HEMOGLOBIN 14.9 g/dL (12.0-15.5); MEAN CORPUSCULAR HEMOGLOBIN 36.3 pg (27.0-33.4); MEAN CORPUSCULAR HGB CONC 33.9 g/dL (32.0-36.0); MEAN CORPUSCULAR VOLUME 107 fl (80-97); PLATELET COUNT 264 10^3/uL (150-450); RED BLOOD COUNT 4.11 10^6/uL (3.72-5.28); RED CELL DISTRIBUTION WIDTH 15.1 % (11.5-14.0)
[2020-03-21 06:30] LABS: ALBUMIN 2.5 g/dL (3.5-5.0); ALKALINE PHOSPHATASE 66 U/L (38-126); ASPARTATE AMINO TRANSFERASE 71 U/L (14-36); BILIRUBIN,DIRECT 0.1 mg/dL (0.0-0.4); BILIRUBIN,TOTAL 0.6 mg/dL (0.2-1.3); BLOOD UREA NITROGEN 12 mg/dL (7-20); GLUCOSE 126 mg/dL (75-110); POTASSIUM 3.7 mmol/L (3.6-5.0); TOTAL PROTEIN 5.8 g/dL (6.3-8.2)
[2020-03-21 06:35] LABS: CARBON DIOXIDE 28 mmol/L (22-30)
[2020-03-21 06:53] LABS: CHLORIDE 102 mmol/L (98-107)
[2020-03-21 06:55] LABS: ABSOLUTE LYMPHOCYTES# (MANUAL) 0.5 10^3/uL (0.5-4.7); ABSOLUTE MONOCYTES # (MANUAL) 0.6 10^3/uL (0.1-1.4); BAND NEUTROPHILS % (MANUAL) 4 % (3-5); BASOPHILS % (MANUAL) 0 % (0-2); EOSINOPHILS % (MANUAL) 0 % (0-6); LYMPHOCYTES % (MANUAL) 6 % (13-45); MONOCYTES % (MANUAL) 7 % (3-13); SEGMENTED NEUTROPHILS % (MAN) 83 % (42-78); TOTAL CELLS COUNTED 100
[2020-03-21 06:57] LABS: ANION GAP 3 (5-19)
[2020-03-21 06:58] LABS: ANISOCYTOSIS SLIGHT; OVALOCYTES SLIGHT; PLATELET COMMENT ADEQUATE; TOXIC GRANULATION SLIGHT
[2020-03-21] MEDS: INSULIN LISPRO 100 UNIT/ML 3 ML VIAL SUBCUT SCH ×4 (09:05→22:52)
[2020-03-21] MEDS: IPRATROPIUM/ALBUTEROL 0.5-2.5 MG/3 ML AMPUL NEB SCH ×3 (09:26→21:13)
--- NOTE | 2020-03-21 11:12 | PDOC PROGRESS REPORT ---
Subjective Progress Note for:: 03/21/20 Subjective:: GABRIELE RODRIGUEZ is a 59 year old female past medical history of th rombocytosis, CAD status post [place] 2010 and pacemaker placement, hypertension, diabetes, presented to ED complaining of 1 week of generalized fatigue and weakness, shortness of breath associated with dry cough, nonbloody diarrhea subjective fever. A week ago patient went to her PCP and It was suspected and patient was tested for COVID and was started on azithromycin, today patient was notified by her PCP that her COVID test had come back positive and she needed to report to ED. Denies any chest pain, headache, vision changes, loss of taste, loss of smell, focal neurological symptoms, orthopnea, proximal nocturnal dyspnea, weight gain, weight loss, abdominal pain, constipation or any urinary symptoms. In the ED she was noted to be febrile, tachycardic and tachypneic hyperkalemic, and chest x-ray showing multilobar pneumonia. Hospitalist was consulted for admission. 03/16/2020. No acute events overnight. Comfortably resting in bed apparent distress, denies any fever, chills, nausea, vomiting, diarrhea, constipation or any urinary symptoms. Ambulatory and having normal bowel and bladder movements. If remains asymptomatic will discharge home tomorrow. 10/16/2019. Yesterday patient was developing hives after receiving ceftriaxone, was given IV Benadryl with resolution of hives and ceftriaxone was DC'd, this morning patient seems to be more respiratory distress, she is noted to be tachypneic and getting winded with trying to talk in full sentences, denies any chest pain, fever, chills, nausea, vomiting. 03/18/2020. No acute events overnight. Significant improvement, on 2 L nasal cannula SPO2 WNL, denies any fever, chills, nausea, vomiting, diarrhea, constipation or any urinary symptoms. Possible DC home tomorrow. Will ambulate today to see if she needs oxygen otherwise will wean off oxygen. 03/19/2020. Patient has been febrile and needing more oxygen, on BiPAP this morning, SPO2 low 90s on 50% oxygen, overall patient is stating that she is doing okay, denies any fever, chills, nausea, vomiting, diarrhea, constipation or any urinary symptoms. I have asked her if she would like us to get her effervescent plasma she is stating that she needs to talk to her family. 03/20/2020. Patient is still BiPAP dependent and on FiO2 of 100% saturating low 90s and high 80s, patient is in moderate respiratory distress however still awake and alert and oriented x4, stating that she is feeling tired and fatigued otherwise denies any chest pain, fever, chills, nausea, vomiting. Has not been able to eat much as she is dependent on BiPAP. 03/21/2020. Unfortunately patient oxygen demand has not changed, still on BiPAP with FiO2 of 100% saturating high 80s and low 90s, repeat ABG has not shown any significant change however patient is not acidotic, ICU was notified 03/20/2020 for possible transfer however they have asked for the patient to remain in IMCU for now, fortunately patient still is still awake and alert and cooperative with physical examination even though she is very hypoxic, complaining of being tired and fatigued and short of breath however denies any chest pain nausea, vomiting or diarrhea. WBC trending down and patient has been afebrile. Reason For Visit: RESPIRATORY FAILURE WITH HYPOXIA, COVID-19 Physical Exam Vital Signs: Temp Pulse Resp BP Pulse Ox 97.5 F 81 30 H 108/81 93 03/21/20 03:42 03/21/20 09:26 03/21/20 09:26 03/21/20 03:42 03/21/20 09:26 Intake & Output 03/20/20 03/21/20 03/22/20 06:59 06:59 06:59 Intake Total 2903 2107 Output Total 1100 Balance 1803 2107 Weight 69.5 kg 66.6 kg General appearance: PRESENT: well-developed, well-nourished, other - Moderate distress. Head exam: PRESENT: atraumatic, normocephalic Respiratory exam: PRESENT: accessory muscle use, clear to auscultation tristan, symmetrical, tachypnea. ABSENT: rales, rhonchi, wheezes Cardiovascular exam: PRESENT: RRR, tachycardia. ABSENT: diastolic murmur, rubs, systolic murmur GI/Abdominal exam: PRESENT: normal bowel sounds, soft. ABSENT: distended, guarding, mass, organolmegaly, rebound, tenderness Neurological exam: PRESENT: alert, awake, oriented to person, oriented to place, oriented to time, oriented to situation, CN II-XII grossly intact. ABSENT: motor sensory deficit Results Laboratory Results: 03/21/20 05:15 03/21/20 05:15 03/19/20 03/20/20 03/21/20 13:15 21:00 05:15 WBC 8.0 RBC 4.11 Hgb 14.9 Hct 44.0 MCV 107 H MCH 36.3 H MCHC 33.9 RDW 15.1 H Plt Count 264 Seg Neutrophils % Not Reportable Carbonic Acid 1.03 L HCO3/H2CO3 Ratio 20:1 ABG pH 7.42 ABG pCO2 34.2 L ABG pO2 51.3 L ABG HCO3 21.5 ABG O2 Saturation 87.3 L ABG Base Excess -2.1 FiO2 100% Sodium Potassium Chloride Carbon Dioxide Anion Gap BUN Creatinine Est GFR ( Amer) Glucose Calcium Magnesium Total Bilirubin AST Alkaline Phosphatase Total Protein Albumin Blood Type O POSITIVE Antibody Screen NEGATIVE 03/21/20 05:15 WBC RBC Hgb Hct MCV MCH MCHC RDW Plt Count Seg Neutrophils % Carbonic Acid HCO3/H2CO3 Ratio ABG pH ABG pCO2 ABG pO2 ABG HCO3 ABG O2 Saturation ABG Base Excess FiO2 Sodium 133.0 L Potassium 3.7 Chloride 102 Carbon Dioxide 28 Anion Gap 3 L BUN 12 Creatinine 0.52 Est GFR ( Amer) > 60 Glucose 126 H Calcium 8.0 L Magnesium 2.5 H Total Bilirubin 0.6 AST 71 H Alkaline Phosphatase 66 Total Protein 5.8 L Albumin 2.5 L Blood Type Antibody Screen 03/15/20 20:05 Blood Blood Culture - Final NO GROWTH IN 5 DAYS 03/15/20 03/15/20 03/16/20 15:30 15:30 08:30 Creatine Kinase 37 CK-MB (CK-2) < 0.22 Troponin I 0.017 < 0.012 NT-Pro-B Natriuret Pep 932 H Impressions: Chest X-Ray 03/20/20 00:00 IMPRESSION: Diffuse bilateral airspace disease consistent with patient's history of Covid pneumonia. Assessment and Plan - Diagnosis (1) Multifocal pneumonia Is this a current diagnosis for this admission?: Yes Plan: Unchanged. BiPAP dependent on FiO2 of 100% SPO2 high high 80s and low 90s. Patient still alert and oriented x4. Likely due to COVID-19, superimposed bacterial pneumonia could also be a possibility. Chest x-ray positive for multifocal pneumonia. WBC WNL. Low-grade fever. Day 7 IV antibiotics. Day 7 IV azithromycin. Received 2 days of IV ceftriaxone. DC IV ceftriaxone patient developed hives. Day 7 IV dexamethasone. Day 7 therapeutic Lovenox. Day 7 IV vancomycin. Day 7 IV remdisivir Status post effervescent plasma transfusion on 03/20/2020. Continue empiric IV antibiotics, sputum culture, supplemental oxygen, duo nebs, weight dosed Lovenox, incentive spirometry, flutter valve. (2) CAD (coronary artery disease) Qualifiers: Coronary Disease-Associated Artery/Lesion type: [place] artery [place] vs. transplanted heart: [place] heart Associated angina: without angina Qualified Code(s): I25.10 - Atherosclerotic heart disease of [place] coronary artery without angina pectoris Is this a current diagnosis for this admission?: Yes Plan: Denies any anginal symptoms. Status post [place] 2010. Pacemaker in place. Mildly elevated troponin likely due to demand mismatch. Resume home meds. Trend troponins. Aspirin and statin. (3) Thrombocytosis Is this a current diagnosis for this admission?: Yes Plan: Platelets WNL. History of thrombocytosis. On hydroxyurea. Resume home meds. Outpatient PCP and hematology follow-up. (4) Hypertension Is this a current diagnosis for this admission?: Yes Plan: Euvolemic. Normotensive. Currently not on any antihypertensive meds. Monitor vitals. PRN IV hydralazine and IV metoprolol. (5) COVID-19 Is this a current diagnosis for this admission?: Yes Plan: Patient is COVID positive with multifocal pneumonia. As noted above she has r eceived aggressive and comprehensive treatment including antibiotics, steroids, convalescent serum and Remdisivir. (6) Hyperkalemia Is this a current diagnosis for this admission?: Yes Plan: Resolved. No acute EKG changes. Hyperkalemia protocol. (7) Diabetes Qualifiers: Diabetes mellitus type: type 2 Is this a current diagnosis for this admission?: Yes Plan: Noted to be hypoglycemic yesterday as patient is not able to eat anything due to to being dependent on BiPAP. Currently on D5 NS. Continue diabetic diet. Sliding scale insulin. Accu-Chek. Hypoglycemia protocol. (8) Gram-positive bacteremia Is this a current diagnosis for this admission?: Yes Plan: Blood culture 1/2 bottles positive for coag negative Staphylococcus epidermidis methicillin-resistant gene positive. Day 5 IV vancomycin. Repeat blood cultures negative so far. - Time Time Spent with patient: 25-34 minutes Medications reviewed and adjusted accordingly: Yes Anticipated Discharge Disposition: Home, Self Care Anticipated Discharge Timeframe: within 72 hours
[2020-03-21] MEDS: ESCITALOPRAM OXALATE 10 MG TABLET PO SCH (11:37)
[2020-03-21] MEDS: HYDROXYUREA 500 MG CAPSULE PO SCH (11:37)
[2020-03-21] MEDS: SOTALOL HCL 80 MG TABLET PO SCH (11:37)
[2020-03-21] MEDS: FLUTICASONE/VILANTEROL 200-25 MCG/DOSE IH SCH (11:38)
[2020-03-21] MEDS: ENOXAPARIN SODIUM INJ 60 MG/0.6 ML DISP.SYRIN SUBCUT SCH ×2 (11:38→22:29)
[2020-03-21] MEDS: FAMOTIDINE 20 MG TABLET PO SCH ×2 (11:39→22:52)
[2020-03-21] MEDS: ASCORBIC ACID 500 MG TABLET PO SCH ×2 (11:39→17:06)
[2020-03-21] MEDS: ZINC SULFATE 220 MG CAPSULE PO SCH (11:39)
[2020-03-21] MEDS: REMDESIVIR (EUA) 100 MG in NORMAL SALINE 250 ML IV SCH (22:28)
[2020-03-21] MEDS: AZITHROMYCIN 500 MG in DEXTROSE 5%-WATER 250 ML IV SCH (22:31)
[2020-03-21] MEDS: TEMAZEPAM 7.5 MG CAPSULE PO SCH (22:51)
[2020-03-22] MEDS: DEXAMETHASONE SOD PHOSPHATE INJ 4 MG/1 ML VIAL IV SCH ×3 (05:22→21:29)
[2020-03-22 05:53] LABS: HEMATOCRIT 48.3 % (36.0-47.0); HEMOGLOBIN 16.5 g/dL (12.0-15.5); MEAN CORPUSCULAR HEMOGLOBIN 36.3 pg (27.0-33.4); MEAN CORPUSCULAR HGB CONC 34.1 g/dL (32.0-36.0); MEAN CORPUSCULAR VOLUME 106 fl (80-97); PLATELET COUNT 182 10^3/uL (150-450); RED BLOOD COUNT 4.55 10^6/uL (3.72-5.28); RED CELL DISTRIBUTION WIDTH 15.3 % (11.5-14.0); WHITE BLOOD COUNT 8.5 10^3/uL (4.0-10.5)
[2020-03-22 06:16] LABS: ABSOLUTE MONOCYTES # (MANUAL) 0.3 10^3/uL (0.1-1.4); BAND NEUTROPHILS % (MANUAL) 1 % (3-5); BASOPHILS % (MANUAL) 0 % (0-2); EOSINOPHILS % (MANUAL) 0 % (0-6); LYMPHOCYTES % (MANUAL) 0 % (13-45); METAMYELOCYTES % (MANUAL) 2 % (0-1); MONOCYTES % (MANUAL) 4 % (3-13); NUCLEATED RED BLOOD CELLS 1 /100 WBC (0); SEGMENTED NEUTROPHILS % (MAN) 93 % (42-78); TOTAL CELLS COUNTED 100
[2020-03-22 06:17] LABS: ANISOCYTOSIS SLIGHT; PLATELET COMMENT ADEQUATE; POIKILOCYTOSIS SLIGHT; TEAR DROP CELLS SLIGHT
[2020-03-22 06:30] LABS: ALBUMIN 2.6 g/dL (3.5-5.0); ALKALINE PHOSPHATASE 93 U/L (38-126); ANION GAP 5 (5-19); ASPARTATE AMINO TRANSFERASE 61 U/L (14-36); BILIRUBIN,DIRECT 0.1 mg/dL (0.0-0.4); BILIRUBIN,TOTAL 0.8 mg/dL (0.2-1.3); BLOOD UREA NITROGEN 14 mg/dL (7-20); CALCIUM 8.4 mg/dL (8.4-10.2); CARBON DIOXIDE 28 mmol/L (22-30); CHLORIDE 104 mmol/L (98-107); GLUCOSE 131 mg/dL (75-110); POTASSIUM 3.9 mmol/L (3.6-5.0)
[2020-03-22 06:34] LABS: VANCOMYCIN,TROUGH 18.1 ug/mL (5.0-20.0)
[2020-03-22 07:24] LABS: ARTERIAL BLOOD BASE EXCESS 2.2 mmol/L; ARTERIAL BLOOD H2CO3 1.04 mmol/L (1.05-1.35); ARTERIAL BLOOD HCO3 25.2 mmol/L (20-24); ARTERIAL BLOOD O2 SATURATION 91.2 % (94-98); ARTERIAL BLOOD PCO2 34.5 mmHg (35-45); ARTERIAL BLOOD PH 7.48 (7.35-7.45); ARTERIAL BLOOD PO2 55.6 mmHg (80-100); ARTERIAL BLOOD TOTAL CO2 26.2 mmol/L (21-25)
[2020-03-22 07:25] LABS: ARTERIAL BLOOD FIO2 100%
[2020-03-22] MEDS: INSULIN LISPRO 100 UNIT/ML 3 ML VIAL SUBCUT SCH ×4 (07:27→21:29)
[2020-03-22] MEDS: VANCOMYCIN HCL 1,000 MG in DEXTROSE 5%-WATER 250 ML IV SCH ×4 (07:33→17:41)
[2020-03-22] MEDS: IPRATROPIUM/ALBUTEROL 0.5-2.5 MG/3 ML AMPUL NEB SCH ×3 (08:29→20:11)
[2020-03-22] MEDS: DEXTROSE 5%-NORMAL SALINE 1,000 ML IV PRN (10:39)
[2020-03-22] MEDS: ZINC SULFATE 220 MG CAPSULE PO SCH (10:39)
[2020-03-22] MEDS: SOTALOL HCL 80 MG TABLET PO SCH (10:40)
[2020-03-22] MEDS: ESCITALOPRAM OXALATE 10 MG TABLET PO SCH (10:40)
[2020-03-22] MEDS: HYDROXYUREA 500 MG CAPSULE PO SCH (10:40)
[2020-03-22] MEDS: ENOXAPARIN SODIUM INJ 60 MG/0.6 ML DISP.SYRIN SUBCUT SCH ×2 (10:40→21:29)
[2020-03-22] MEDS: ASCORBIC ACID 500 MG TABLET PO SCH ×2 (10:40→17:38)
[2020-03-22] MEDS: FAMOTIDINE 20 MG TABLET PO SCH ×2 (10:40→21:29)
[2020-03-22] MEDS: FLUTICASONE/VILANTEROL 200-25 MCG/DOSE IH SCH (10:41)
--- NOTE | 2020-03-22 11:29 | PDOC PROGRESS REPORT ---
Subjective Progress Note for:: 03/22/20 - ] Subjective:: GABRIELE RODRIGUEZ is a 59 year old female past medical history of thrombocytosis, CAD status post [place] 2010 and pacemaker placement, hypertension, diabetes, presented to ED complaining of 1 week of generalized fatigue and weakness, shortness of breath associated with dry cough, nonbloody diarrhea subjective fever. A week ago patient went to her PCP and It was suspected and patient was tested for COVID and was started on azithromycin, today patient was notified by her PCP that her COVID test had come back positive and she needed to report to ED. Denies any chest pain, headache, vision changes, loss of taste, loss of smell, focal neurological symptoms, orthopnea, proximal nocturnal dyspnea, weight gain, weight loss, abdominal pain, constipation or any urinary symptoms. In the ED she was noted to be febrile, tachycardic and tachypneic hyperkalemic, and chest x-ray showing multilobar pneumonia. Hospitalist was consulted for admission. 03/16/2020. No acute events overnight. Comfortably resting in bed apparent distress, denies any fever, chills, nausea, vomiting, diarrhea, constipation or any urinary symptoms. Ambulatory and having normal bowel and bladder movements. If remains asymptomatic will discharge home tomorrow. 10/16/2019. Yesterday patient was developing hives after receiving ceftriaxone, was given IV Benadryl with resolution of hives and ceftriaxone was DC'd, this morning patient seems to be more respiratory distress, she is noted to be tachypneic and getting winded with trying to talk in full sentences, denies any chest pain, fever, chills, nausea, vomiting. 03/18/2020. No acute events overnight. Significant improvement, on 2 L nasal cannula SPO2 WNL, denies any fever, chills, nausea, vomiting, diarrhea, constipation or any urinary symptoms. Possible DC home tomorrow. Will ambulate today to see if she needs oxygen otherwise will wean off oxygen. 03/19/2020. Patient has been febrile and needing more oxygen, on BiPAP this morning, SPO2 low 90s on 50% oxygen, overall patient is stating that she is doing okay, denies any fever, chills, nausea, vomiting, diarrhea, constipation or any urinary symptoms. I have asked her if she would like us to get her effervescent plasma she is stating that she needs to talk to her family. 03/20/2020. Patient is still BiPAP dependent and on FiO2 of 100% saturating low 90s and high 80s, patient is in moderate respiratory distress however still awake and alert and oriented x4, stating that she is feeling tired and fatigued otherwise denies any chest pain, fever, chills, nausea, vomiting. Has not been able to eat much as she is dependent on BiPAP. 03/21/2020. Unfortunately patient oxygen demand has not changed, still on BiPAP with FiO2 of 100% saturating high 80s and low 90s, repeat ABG has not shown any significant change however patient is not acidotic, ICU was notified 03/20/2020 for possible transfer however they have asked for the patient to remain in IMCU for now, fortunately patient still is still awake and alert and cooperative with physical examination even though she is very hypoxic, complaining of being tired and fatigued and short of breath however denies any chest pain nausea, vomiting or diarrhea. WBC trending down and patient has been afebrile. 03/22/2020. Unfortunately patient still 100% oxygen and dependent on BiPAP, patient still awake and alert and oriented, seems to be on moderate respiratory distress, stating that she is feeling tired and hurts everywhere otherwise denies any chest pain, nausea, vomiting, diarrhea, constipation. Reason For Visit: RESPIRATORY FAILURE WITH HYPOXIA, COVID-19 Physical Exam Vital Signs: Temp Pulse Resp BP Pulse Ox 98.7 F 97 26 H 138/98 H 88 L 03/22/20 04:00 03/22/20 08:29 03/22/20 08:29 03/22/20 04:00 03/22/20 08:29 Intake & Output 03/21/20 03/22/20 03/23/20 06:59 06:59 06:59 Intake Total 2107 1000 250 Output Total 250 Balance 2107 750 250 Weight 66.6 kg 67 kg General appearance: PRESENT: well-developed, well-nourished, other - Moderate distress Head exam: PRESENT: atraumatic, normocephalic Respiratory exam: PRESENT: accessory muscle use, clear to auscultation tristan, tachypnea. ABSENT: rales, rhonchi, wheezes Cardiovascular exam: PRESENT: RRR, tachycardia. ABSENT: diastolic murmur, rubs, systolic murmur GI/Abdominal exam: PRESENT: normal bowel sounds, soft. ABSENT: distended, guarding, mass, organolmegaly, rebound, tenderness Neurological exam: PRESENT: alert, awake, oriented to person, oriented to place, oriented to time, oriented to situation, CN II-XII grossly intact. ABSENT: motor sensory deficit Results Laboratory Results: 03/22/20 05:02 03/22/20 05:02 03/22/20 03/22/20 03/22/20 05:02 05:02 06:53 WBC 8.5 RBC 4.55 Hgb 16.5 H Hct 48.3 H MCV 106 H MCH 36.3 H MCHC 34.1 RDW 15.3 H Plt Count 182 Seg Neutrophils % Not Reportable Carbonic Acid 1.04 L HCO3/H2CO3 Ratio 24:1 ABG pH 7.48 H ABG pCO2 34.5 L ABG pO2 55.6 L ABG HCO3 25.2 H ABG O2 Saturation 91.2 L ABG Base Excess 2.2 FiO2 100% Sodium 137.4 Potassium 3.9 Chloride 104 Carbon Dioxide 28 Anion Gap 5 BUN 14 Creatinine 0.46 L Est GFR ( Amer) > 60 Glucose 131 H Calcium 8.4 Magnesium 2.4 H Total Bilirubin 0.8 AST 61 H Alkaline Phosphatase 93 Total Protein 6.0 L Albumin 2.6 L 03/15/20 17:50 Blood Blood Culture - Final Staphylococcus Epidermidis 03/15/20 03/15/20 03/16/20 15:30 15:30 08:30 Creatine Kinase 37 CK-MB (CK-2) < 0.22 Troponin I 0.017 < 0.012 NT-Pro-B Natriuret Pep 932 H Impressions: Chest X-Ray 03/20/20 00:00 IMPRESSION: Diffuse bilateral airspace disease consistent with patient's history of Covid pneumonia. Assessment and Plan - Diagnosis (1) Multifocal pneumonia Is this a current diagnosis for this admission?: Yes Plan: Unchanged. BiPAP dependent on FiO2 of 100% SPO2 high high 80s and low 90s. Patient still alert and oriented x4. Likely due to COVID-19, superimposed bacterial pneumonia could also be a possibility. Chest x-ray positive for multifocal pneumonia. WBC WNL. Low-grade fever. Day 8 IV antibiotics. Day 8 IV azithromycin. Received 2 days of IV ceftriaxone. DC IV ceftriaxone patient developed hives. Day 8 IV dexamethasone. Day 8 therapeutic Lovenox. Day 8 IV vancomycin. Completed a course of IV Remdisivir. Status post effervescent plasma transfusion on 03/20/2020. Continue empiric IV antibiotics, sputum culture, supplemental oxygen, duo nebs, weight dosed Lovenox, incentive spirometry, flutter valve. (2) CAD (coronary artery disease) Qualifiers: Coronary Disease-Associated Artery/Lesion type: [place] artery [place] vs. transplanted heart: [place] heart Associated angina: without angina Qualified Code(s): I25.10 - Atherosclerotic heart disease of [place] coronary artery without angina pectoris Is this a current diagnosis for this admission?: Yes Plan: Denies any anginal symptoms. Status post [place] 2010. Pacemaker in place. Mildly elevated troponin likely due to demand mismatch. Resume home meds. Trend troponins. Aspirin and statin. (3) Thrombocytosis Is this a current diagnosis for this admission?: Yes Plan: Platelets WNL. History of thrombocytosis. On hydroxyurea. Resume home meds. Outpatient PCP and hematology follow-up. (4) Hypertension Is this a current diagnosis for this admission?: Yes Plan: Euvolemic. Normotensive. Currently not on any antihypertensive meds. Monitor vitals. PRN IV hydralazine and IV metoprolol. (5) COVID-19 Is this a current diagnosis for this admission?: Yes Plan: Patient is COVID positive with multifocal pneumonia. As noted above she has received aggressive and comprehensive treatment including antibiotics, steroids, convalescent serum and Remdisivir. (6) Hyperkalemia Is this a current diagnosis for this admission?: Yes Plan: Resolved. No acute EKG changes. Hyperkalemia protocol. (7) Diabetes Qualifiers: Diabetes mellitus type: type 2 Is this a current diagnosis for this admission?: Yes Plan: Noted to be hypoglycemic yesterday as patient is not able to eat anything due to to being dependent on BiPAP. Currently on D5 NS. Continue diabetic diet. Sliding scale insulin. Accu-Chek. Hypoglycemia protoc ol. (8) Gram-positive bacteremia Is this a current diagnosis for this admission?: Yes Plan: Blood culture 1/2 bottles positive for coag negative Staphylococcus epidermidis methicillin-resistant gene positive. Day 6 IV vancomycin. Repeat blood cultures negative so far. (10) Acute respiratory failure with hypoxia Is this a current diagnosis for this admission?: Yes Plan: Due to #1. Plan as per #1. - Time Time Spent with patient: 25-34 minutes Medications reviewed and adjusted accordingly: Yes Anticipated Discharge Disposition: Home with Home Health Anticipated Discharge Timeframe: within 72 hours
[2020-03-22 19:32] LABS: INTERNATIONAL RATION (INR) 1.46; PROTHROMBIN TIME 17.9 SEC (11.4-15.4)
[2020-03-22 19:33] LABS: FIBRINOGEN 314 mg/dL (209-497); PARTIAL THROMBOPLASTIN TIME 37.4 SEC (23.5-35.8)
[2020-03-22 19:55] LABS: C-REACTIVE PROTEIN 80.7 mg/L (<10.0)
[2020-03-22 21:03] LABS: ARTERIAL BLOOD BASE EXCESS 0.2 mmol/L; ARTERIAL BLOOD H2CO3 1.12 mmol/L (1.05-1.35); ARTERIAL BLOOD HCO3 24.2 mmol/L (20-24); ARTERIAL BLOOD O2 SATURATION 82.8 % (94-98); ARTERIAL BLOOD PCO2 37.3 mmHg (35-45); ARTERIAL BLOOD PH 7.43 (7.35-7.45); ARTERIAL BLOOD PO2 45.3 mmHg (80-100); ARTERIAL BLOOD TOTAL CO2 25.3 mmol/L (21-25)
[2020-03-22 21:05] LABS: ARTERIAL BLOOD FIO2 100%
[2020-03-22] MEDS: AZITHROMYCIN 500 MG in DEXTROSE 5%-WATER 250 ML IV SCH (21:28)
[2020-03-22] MEDS: MORPHINE SULFATE 10 MG/ML INJ IV PRN (23:01)
[2020-03-23] MEDS: VANCOMYCIN HCL 1,000 MG in DEXTROSE 5%-WATER 250 ML IV SCH ×2 (00:39→09:04)
[2020-03-23] MEDS: MORPHINE SULFATE 10 MG/ML INJ IV PRN (01:50)
[2020-03-23] MEDS ORDERED: LORAZEPAM INJ 2 MG/1 ML VIAL IV PRN (03:50)
[2020-03-23] MEDS: DEXAMETHASONE SOD PHOSPHATE INJ 4 MG/1 ML VIAL IV SCH ×3 (05:16→22:21)
[2020-03-23 05:53] LABS: ALBUMIN 2.5 g/dL (3.5-5.0); ALKALINE PHOSPHATASE 149 U/L (38-126); ASPARTATE AMINO TRANSFERASE 67 U/L (14-36); BILIRUBIN,DIRECT 0.2 mg/dL (0.0-0.4); BILIRUBIN,TOTAL 1.4 mg/dL (0.2-1.3); BLOOD UREA NITROGEN 18 mg/dL (7-20); CALCIUM 8.4 mg/dL (8.4-10.2); GLUCOSE 167 mg/dL (75-110); POTASSIUM 3.5 mmol/L (3.6-5.0); TOTAL PROTEIN 6.1 g/dL (6.3-8.2)
[2020-03-23 05:59] LABS: ANION GAP 5 (5-19); CARBON DIOXIDE 27 mmol/L (22-30); CHLORIDE 106 mmol/L (98-107)
[2020-03-23 06:53] LABS: ARTERIAL BLOOD BASE EXCESS 0.3 mmol/L; ARTERIAL BLOOD H2CO3 1.19 mmol/L (1.05-1.35); ARTERIAL BLOOD HCO3 24.7 mmol/L (20-24); ARTERIAL BLOOD O2 SATURATION 81.5 % (94-98); ARTERIAL BLOOD PCO2 39.4 mmHg (35-45); ARTERIAL BLOOD PH 7.42 (7.35-7.45); ARTERIAL BLOOD PO2 44.7 mmHg (80-100); ARTERIAL BLOOD TOTAL CO2 25.9 mmol/L (21-25)
[2020-03-23 06:54] LABS: ARTERIAL BLOOD FIO2 100%
[2020-03-23] MEDS: INSULIN LISPRO 100 UNIT/ML 3 ML VIAL SUBCUT SCH ×4 (07:37→22:23)
[2020-03-23] MEDS: IPRATROPIUM/ALBUTEROL 0.5-2.5 MG/3 ML AMPUL NEB SCH ×3 (08:23→21:23)
[2020-03-23] MEDS: DEXTROSE 5%-NORMAL SALINE 1,000 ML IV PRN (09:04)
[2020-03-23 09:10] LABS: HEMATOCRIT 49.2 % (36.0-47.0); HEMOGLOBIN 16.4 g/dL (12.0-15.5); MEAN CORPUSCULAR HEMOGLOBIN 35.5 pg (27.0-33.4); MEAN CORPUSCULAR HGB CONC 33.4 g/dL (32.0-36.0); MEAN CORPUSCULAR VOLUME 107 fl (80-97); PLATELET COUNT 118 10^3/uL (150-450); RED BLOOD COUNT 4.62 10^6/uL (3.72-5.28); RED CELL DISTRIBUTION WIDTH 15.7 % (11.5-14.0)
[2020-03-23] MEDS: FAMOTIDINE 20 MG TABLET PO SCH ×2 (09:14→22:24)
[2020-03-23] MEDS: ESCITALOPRAM OXALATE 10 MG TABLET PO SCH (09:14)
[2020-03-23] MEDS: FLUTICASONE/VILANTEROL 200-25 MCG/DOSE IH SCH (09:14)
[2020-03-23] MEDS: ASCORBIC ACID 500 MG TABLET PO SCH ×2 (09:15→17:05)
[2020-03-23] MEDS: ZINC SULFATE 220 MG CAPSULE PO SCH (09:15)
[2020-03-23 09:20] LABS: WHITE BLOOD COUNT 24.5 10^3/uL (4.0-10.5)
[2020-03-23 09:29] LABS: ABSOLUTE LYMPHOCYTES# (MANUAL) 0.5 10^3/uL (0.5-4.7); ABSOLUTE MONOCYTES # (MANUAL) 0.7 10^3/uL (0.1-1.4); BAND NEUTROPHILS % (MANUAL) 1 % (3-5); BASOPHILS % (MANUAL) 0 % (0-2); EOSINOPHILS % (MANUAL) 0 % (0-6); LYMPHOCYTES % (MANUAL) 2 % (13-45); MONOCYTES % (MANUAL) 3 % (3-13); SEGMENTED NEUTROPHILS % (MAN) 94 % (42-78); TOTAL CELLS COUNTED 100
[2020-03-23 09:37] LABS: HYPERSEGMENTED NEUTROPHILS PRESENT; POLYCHROMASIA SLIGHT; TOXIC GRANULATION 1+
[2020-03-23 09:38] LABS: OVALOCYTES SLIGHT; PLATELET COMMENT DECREASED; POIKILOCYTOSIS 1+; SCHISTOCYTES 1+; TEAR DROP CELLS SLIGHT
[2020-03-23] MEDS: SOTALOL HCL 80 MG TABLET PO SCH (11:35)
[2020-03-23] MEDS: HYDROXYUREA 500 MG CAPSULE PO SCH (11:36)
--- NOTE | 2020-03-23 11:51 | PDOC PROGRESS REPORT ---
Subjective Progress Note for:: 03/23/20 Subjective:: GABRIELE RODRIGUEZ is a 59 year old female past medical history of th rombocytosis, CAD status post MA 2010 and pacemaker placement, hypertension, diabetes, presented to ED complaining of 1 week of generalized fatigue and weakness, shortness of breath associated with dry cough, nonbloody diarrhea subjective fever. A week ago patient went to her PCP and It was suspected and patient was tested for COVID and was started on azithromycin, today patient was notified by her PCP that her COVID test had come back positive and she needed to report to ED. Denies any chest pain, headache, vision changes, loss of taste, loss of smell, focal neurological symptoms, orthopnea, proximal nocturnal dyspnea, weight gain, weight loss, abdominal pain, constipation or any urinary symptoms. In the ED she was noted to be febrile, tachycardic and tachypneic hyperkalemic, and chest x-ray showing multilobar pneumonia. Hospitalist was consulted for admission. 03/16/2020. No acute events overnight. Comfortably resting in bed apparent distress, denies any fever, chills, nausea, vomiting, diarrhea, constipation or any urinary symptoms. Ambulatory and having normal bowel and bladder movements. If remains asymptomatic will discharge home tomorrow. 10/16/2019. Yesterday patient was developing hives after receiving ceftriaxone, was given IV Benadryl with resolution of hives and ceftriaxone was DC'd, this morning patient seems to be more respiratory distress, she is noted to be tachypneic and getting winded with trying to talk in full sentences, denies any chest pain, fever, chills, nausea, vomiting. 03/18/2020. No acute events overnight. Significant improvement, on 2 L nasal cannula SPO2 WNL, denies any fever, chills, nausea, vomiting, diarrhea, constipation or any urinary symptoms. Possible DC home tomorrow. Will ambulate today to see if she needs oxygen otherwise will wean off oxygen. 03/19/2020. Patient has been febrile and needing more oxygen, on BiPAP this morning, SPO2 low 90s on 50% oxygen, overall patient is stating that she is doing okay, denies any fever, chills, nausea, vomiting, diarrhea, constipation or any urinary symptoms. I have asked her if she would like us to get her effervescent plasma she is stating that she needs to talk to her family. 03/20/2020. Patient is still BiPAP dependent and on FiO2 of 100% saturating low 90s and high 80s, patient is in moderate respiratory distress however still awake and alert and oriented x4, stating that she is feeling tired and fatigued otherwise denies any chest pain, fever, chills, nausea, vomiting. Has not been able to eat much as she is dependent on BiPAP. 03/21/2020. Unfortunately patient oxygen demand has not changed, still on BiPAP with FiO2 of 100% saturating high 80s and low 90s, repeat ABG has not shown any significant change however patient is not acidotic, ICU was notified 03/20/2020 for possible transfer however they have asked for the patient to remain in IMCU for now, fortunately patient still is still awake and alert and cooperative with physical examination even though she is very hypoxic, complaining of being tired and fatigued and short of breath however denies any chest pain nausea, vomiting or diarrhea. WBC trending down and patient has been afebrile. 03/22/2020. Unfortunately patient still 100% oxygen and dependent on BiPAP, patient still awake and alert and oriented, seems to be on moderate respiratory distress, stating that she is feeling tired and hurts everywhere otherwise denies any chest pain, nausea, vomiting, diarrhea, constipation. 03/23/2020. Unfortunately patient has not had any changes compared to yesterday, still on BiPAP 100% saturating in low 80s, patient is still awake and alert but appears very weak and exhausted, denies any chest pain but stating that she feels very weak, denies any nausea, vomiting, diarrhea. Has not been able to take any p.o. intake as patient is dependent on supplemental oxygen 03/03. Try to transfer patient to [facility] unfortunately they did not accept her, underwriting clerks supervisor at [facility] was consulted for possible transfer to ICU however as per their evaluation patient can managed here at [facility] and does not need to be intubated yet. Please refer to underwriting clerks supervisor note. Reason For Visit: RESPIRATORY FAILURE WITH HYPOXIA, COVID-19 Physical Exam Vital Signs: Temp Pulse Resp BP Pulse Ox 97.5 F 103 H 30 H 143/90 H 78 L 03/23/20 08:36 03/23/20 08:36 03/23/20 08:36 03/23/20 08:36 03/23/20 08:36 Intake & Output 03/22/20 03/23/20 03/24/20 06:59 06:59 06:59 Intake Total 1000 1500 750 Output Total 250 250 Balance 750 1250 750 Weight 67 kg 64.1 kg General appearance: PRESENT: severe distress Head exam: PRESENT: atraumatic, normocephalic Neck exam: ABSENT: carotid bruit, JVD, lymphadenopathy, thyromegaly Respiratory exam: PRESENT: accessory muscle use, retraction, tachypnea. ABSENT: rales, rhonchi, wheezes Cardiovascular exam: PRESENT: RRR. ABSENT: diastolic murmur, rubs, systolic murmur GI/Abdominal exam: PRESENT: normal bowel sounds, soft. ABSENT: distended, guarding, mass, organolmegaly, rebound, tenderness Neurological exam: PRESENT: alert, awake, oriented to person, oriented to place, oriented to time, oriented to situation, CN II-XII grossly intact. ABSENT: motor sensory deficit Results Laboratory Results: 03/23/20 08:16 03/23/20 04:39 03/22/20 03/22/20 03/23/20 19:14 20:40 04:39 WBC Cancelled RBC Cancelled Hgb Cancelled Hct Cancelled MCV Cancelled MCH Cancelled MCHC Cancelled RDW Cancelled Plt Count Cancelled Seg Neutrophils % Cancelled Carbonic Acid 1.12 HCO3/H2CO3 Ratio 21:1 ABG pH 7.43 ABG pCO2 37.3 ABG pO2 45.3 L ABG HCO3 24.2 H ABG O2 Saturation 82.8 L ABG Base Excess 0.2 FiO2 100% Sodium Potassium Chloride Carbon Dioxide Anion Gap BUN Creatinine Est GFR ( Amer) Glucose Calcium Magnesium Total Bilirubin AST Alkaline Phosphatase C-Reactive Protein 80.7 H Total Protein Albumin 03/23/20 03/23/20 03/23/20 04:39 06:40 08:16 WBC 24.5 H D RBC 4.62 Hgb 16.4 H Hct 49.2 H MCV 107 H MCH 35.5 H MCHC 33.4 RDW 15.7 H Plt Count 118 L Seg Neutrophils % Not Reportable Carbonic Acid 1.19 HCO3/H2CO3 Ratio 20:1 ABG pH 7.42 ABG pCO2 39.4 ABG pO2 44.7 L ABG HCO3 24.7 H ABG O2 Saturation 81.5 L ABG Base Excess 0.3 FiO2 100% Sodium 137.6 Potassium 3.5 L Chloride 106 Carbon Dioxide 27 Anion Gap 5 BUN 18 Creatinine 0.56 Est GFR ( Amer) > 60 Glucose 167 H Calcium 8.4 Magnesium 2.5 H Total Bilirubin 1.4 H AST 67 H Alkaline Phosphatase 149 H C-Reactive Protein Total Protein 6.1 L Albumin 2.5 L 03/17/20 11:40 Blood Blood Culture - Final NO GROWTH IN 5 DAYS 03/17/20 11:25 Blood Blood Culture - Final NO GROWTH IN 5 DAYS 03/15/20 17:50 Blood Blood Culture - Final Staphylococcus Epidermidis 03/15/20 03/15/20 03/16/20 15:30 15:30 08:30 Creatine Kinase 37 CK-MB (CK-2) < 0.22 Troponin I 0.017 < 0.012 NT-Pro-B Natriuret Pep 932 H Impressions: Chest X-Ray 03/20/20 00:00 IMPRESSION: Diffuse bilateral airspace disease consistent with patient's history of Covid pneumonia. Assessment and Plan - Diagnosis (1) Multifocal pneumonia Is this a current diagnosis for this admission?: Yes Plan: Unchanged. BiPAP dependent on FiO2 of 100% SPO2 high high 80s and low 90s. Patient still alert and oriented x4. Likely due to COVID-19, superimposed bacterial pneumonia could also be a possibility. Chest x-ray positive for multifocal pneumonia. WBC WNL. Low-grade fever. Day 9 IV antibiotics. Day 9 IV azithromycin. Received 2 days of IV ceftriaxone. DC IV ceftriaxone patient developed hives. Day 9 IV dexamethasone. Day 9 therapeutic Lovenox. Received 9 days of IV vancomycin. Completed a course of IV Remdisivir. Status post effervescent plasma transfusion on 03/20/2020. Continue empiric IV antibiotics, sputum culture, supplemental oxygen, duo nebs, weight dosed Lovenox, incentive spirometry, flutter valve. [facility] [employer] has been consulted, recommendation is to manage patient in IMCU. Please refer to underwriting clerks supervisor note. (2) COVID-19 Is this a current diagnosis for this admission?: Yes Plan: Patient is COVID positive with multifocal pneumonia. As noted above she has received aggressive and comprehensive treatment including antibiotics, steroids, convalescent serum and Remdisivir. (3) CAD (coronary artery disease) Qualifiers: Coronary Disease-Associated Artery/Lesion type: [place] artery [place] vs. transplanted heart: [place] heart Associated angina: without angina Qualified Code(s): I25.10 - Atherosclerotic heart disease of [place] coronary artery without angina pectoris Is this a current diagnosis for this admission?: Yes Plan: Denies any anginal symptoms. Status post MA 2010. Pacemaker in place. Mildly elevated troponin likely due to demand mismatch. Resume home meds. Trend troponins. Aspirin and statin. (4) Thrombocytosis Is this a current diagnosis for this admission?: Yes Plan: History of thrombocytosis. On hydroxyurea. Platelets are actually dropping. Will hold hydroxyurea. Resume home meds upon discharge. Outpatient PCP and hematology follow-up. (5) Hypertension Is this a current diagnosis for this admission?: Yes Plan: Euvolemic. Normotensive. Currently not on any antihypertensive meds. Monitor vitals. PRN IV hydralazine and IV metoprolol. (6) Hyperkalemia Is this a current diagnosis for this admission?: Yes Plan: Resolved. No acute EKG changes. Hyperkalemia protocol. (7) Diabetes Qualifiers: Diabetes mellitus type: type 2 Is this a current diagnosis for this admission?: Yes Plan: Noted to be hypoglycemic yesterday as patient is not able to eat anything due to to being dependent on BiPAP. Currently on D5 NS. Continue diabetic diet. Sliding scale insulin. Accu-Chek. Hypoglycemia protocol. (8) Gram-positive bacteremia Is this a current diagnosis for this admission?: Yes Plan: Blood culture 1/2 bottles positive for coag negative Staphylococcus epidermidis methicillin-resistant gene positive. Received 8 days of IV vancomycin. Repeat cultures all negative. (9) Acute respiratory failure with hypoxemia Is this a current diagnosis for this admission?: Yes Plan: As per #1. - Time Time Spent with patient: 25-34 minutes Medications reviewed and adjusted accordingly: Yes Anticipated Discharge Disposition: Home with Home Health Anticipated Discharge Timeframe: within 72 hours
--- NOTE | 2020-03-23 13:19 | PDOC CRITICAL CARE PROG REPORT ---
General Date:: 03/23/20 Hospital Day:: 9 Resuscitation Status: Full Code Events in the past 12 to 24 Hours:: This 59-year-old female reformed smoker is seen in consultation at the request of Dr. Jamil Ferguson for recommendations on further evaluation and management of acute hypoxemic respiratory failure. The patient was admitted on 03/15/2020 with COVID-19 pneumonia. She is seen in [facility], where she is currently on BiPAP 18/10, FiO2 100%. Her SPO2 is 80%. At the time of clinical interview, the patient is awake, alert and interactive. Is tolerating BiPAP. She does not like it but understands that it is helping her with her breathing. She does report chest tightness. She denies other pain/discomfort. PAST MEDICAL HISTORY: * Myocardial infarction (2010)/coronary artery disease * Hyperlipidemia * Bronchitis/pneumonia * Permanent pacemaker * Tubal ligation SOCIAL HISTORY: * Tobacco: Reformed smoker * Alcohol: Denies * Illicit drugs: Denies FAMILY HISTORY: Noncontributory ALLERGIES: No known drug allergies HOME MEDICATIONS: * Hydroxyurea 500 mg p.o. daily * Sotalol 40 mg p.o. daily * Cetirizine 10 mg p.o. daily * Lexapro 15 mg p.o. daily * Lasix 20 mg p.o. daily as needed * Metformin 500 mg p.o. twice daily Review of systems relevant to events:: Respiratory: COVID-19 pneumonia, acute hypoxemic respiratory failure Hematologic: Leukocytosis lymphocytopenia, thrombocytopenia Cardiovascular: Coronary artery disease Endocrine: Type 2 diabetes mellitus Reason for ICU Addmission:: ICU transfer is not necessary at this time - Medications: Medications reviewed and adjusted accordingly: Yes Physical Exam Vital Signs: Temp Pulse Resp BP Pulse Ox 97.5 F 103 H 42 H 143/90 H 80 L 03/23/20 08:36 03/23/20 08:36 03/23/20 12:57 03/23/20 08:36 03/23/20 12:57 Intake & Output 03/22/20 03/23/20 03/24/20 06:59 06:59 06:59 Intake Total 1000 1500 750 Output Total 250 250 Balance 750 1250 750 Weight 67 kg 64.1 kg Weight/Height Weight 64.1 kg Height 1.65 m General appearance: PRESENT: no acute distress, well-developed, well-nourished Head exam: PRESENT: atraumatic, normocephalic Eye exam: PRESENT: conjunctiva pink, EOMI, PERRLA. ABSENT: scleral icterus Mouth exam: PRESENT: moist, tongue midline Neck exam: ABSENT: carotid bruit, JVD, lymphadenopathy, thyromegaly Respiratory exam: PRESENT: crackles, rales, tachypnea. ABSENT: prolonged expiratory phas Cardiovascular exam: PRESENT: RRR. ABSENT: diastolic murmur, rubs, systolic murmur Pulses: PRESENT: normal dorsalis pedis pul GI/Abdominal exam: PRESENT: normal bowel sounds, soft. ABSENT: distended, guarding, mass, organolmegaly, rebound, tenderness Extremities exam: PRESENT: full ROM. ABSENT: calf tenderness, clubbing, pedal edema Neurological exam: PRESENT: alert, awake, reflexes normal, CN II-XII grossly i ntact. ABSENT: motor sensory deficit Psychiatric exam: PRESENT: anxious. ABSENT: agitated Skin exam: PRESENT: dry, intact, warm. ABSENT: cyanosis, rash Laboratory/Radiographs Laboratory Results: 03/23/20 08:16 03/23/20 04:39 03/22/20 03/22/20 03/23/20 19:14 20:40 04:39 WBC Cancelled RBC Cancelled Hgb Cancelled Hct Cancelled MCV Cancelled MCH Cancelled MCHC Cancelled RDW Cancelled Plt Count Cancelled Seg Neutrophils % Cancelled Carbonic Acid 1.12 HCO3/H2CO3 Ratio 21:1 ABG pH 7.43 ABG pCO2 37.3 ABG pO2 45.3 L ABG HCO3 24.2 H ABG O2 Saturation 82.8 L ABG Base Excess 0.2 FiO2 100% Sodium Potassium Chloride Carbon Dioxide Anion Gap BUN Creatinine Est GFR ( Amer) Glucose Calcium Magnesium Total Bilirubin AST Alkaline Phosphatase C-Reactive Protein 80.7 H Total Protein Albumin 03/23/20 03/23/20 03/23/20 04:39 06:40 08:16 WBC 24.5 H D RBC 4.62 Hgb 16.4 H Hct 49.2 H MCV 107 H MCH 35.5 H MCHC 33.4 RDW 15.7 H Plt Count 118 L Seg Neutrophils % Not Reportable Carbonic Acid 1.19 HCO3/H2CO3 Ratio 20:1 ABG pH 7.42 ABG pCO2 39.4 ABG pO2 44.7 L ABG HCO3 24.7 H ABG O2 Saturation 81.5 L ABG Base Excess 0.3 FiO2 100% Sodium 137.6 Potassium 3.5 L Chloride 106 Carbon Dioxide 27 Anion Gap 5 BUN 18 Creatinine 0.56 Est GFR ( Amer) > 60 Glucose 167 H Calcium 8.4 Magnesium 2.5 H Total Bilirubin 1.4 H AST 67 H Alkaline Phosphatase 149 H C-Reactive Protein Total Protein 6.1 L Albumin 2.5 L 03/17/20 11:40 Blood Blood Culture - Final NO GROWTH IN 5 DAYS 03/17/20 11:25 Blood Blood Culture - Final NO GROWTH IN 5 DAYS 03/15/20 17:50 Blood Blood Culture - Final Staphylococcus Epidermidis 03/15/20 03/15/20 03/16/20 15:30 15:30 08:30 Creatine Kinase 37 CK-MB (CK-2) < 0.22 Troponin I 0.017 < 0.012 NT-Pro-B Natriuret Pep 932 H Impressions: Chest X-Ray 03/20/20 00:00 IMPRESSION: Diffuse bilateral airspace disease consistent with patient's history of Covid pneumonia. All labs, radiographs, diagnostic studies and EKGs were personally reviewed: Yes In addition, reports of radiographic and diagnostic studies were read: Yes Assessment and Plan - Diagnosis (1) Pneumonia due to severe acute respiratory syndrome coronavirus 2 (SARS-CoV- 2) Is this a current diagnosis for this admission?: Yes Plan: I agree with the ongoing management of this patient. BiPAP was titrated at the bedside to 18/12. Continue FiO2 100%. Avoid unnecessary IV fluid administration. Diurese today: Furosemide 40 mg IV single dose. With a K of 3.5 this a.m., potassium supplementation should be provided. Repeat proBNP in the morning. 2D echocardiographic interrogation should be considered. Ongoing treatment with Decadron, vitamin C, zinc sulfate and azithromycin are noted. The patient has been put on Breo, which is not feasible in her BiPAP dependent state. Add budesonide. (2) CAD (coronary artery disease) Qualifiers: Coronary Disease-Associated Artery/Lesion type: [place] artery [place] vs. transplanted heart: [place] heart Associated angina: without angina Qualified Code(s): I25.10 - Atherosclerotic heart disease of [place] coronary artery without angina pectoris Is this a current diagnosis for this admission?: Yes (3) Diabetes Qualifiers: Diabetes mellitus type: type 2 Is this a current diagnosis for this admission?: Yes Plan Summary: These recommendations were communicated to Dr. Frazier. ICU transfer is not necessary at this time. Critical Time Critical Time (minutes): 45 Level of Care: IMCU -: 1. The care of a critical patient is a dynamic process. This note is a major account representative synopsis but static in nature. The timeframe for treatments given in order is not necessarily the actual time these treatments may have been done. 2. This patient requires critical care secondary to ongoing requirements for therapy not offered or safe outside the critical care environment. Transfer to a lower level of care will result in altered life or limb morbidity and mortality. 3. Multidisciplinary rounds completed. 4. ABCDE bundle addressed.
[2020-03-23] MEDS: ENOXAPARIN SODIUM INJ 60 MG/0.6 ML DISP.SYRIN SUBCUT SCH ×2 (13:25→22:22)
[2020-03-23] MEDS: METOPROLOL TARTRATE PF/INJ 5 MG/5 ML SDV IV PRN (13:26)
[2020-03-23] MEDS ORDERED: FUROSEMIDE INJ/PF 20 MG/2 ML SDV IV ONE (14:00)
[2020-03-23] MEDS: AZITHROMYCIN 500 MG in DEXTROSE 5%-WATER 250 ML IV SCH (22:19)
[2020-03-24 00:22] LABS: APPEARANCE,URINE CLOUDY; BILIRUBIN,URINE NEGATIVE (NEGATIVE); COLOR,URINE AMBER; GLUCOSE, URINE 50 mg/dL (NEGATIVE); KETONES,URINE NEGATIVE (NEGATIVE); LEUKOCYTE ESTERASE,URINE TRACE (NEGATIVE); NITRITE,URINE NEGATIVE (NEGATIVE); PROTEIN,URINE 100 mg/dL (NEGATIVE); URINE SPECIFIC GRAVITY 1.019; UROBILINOGEN,URINE NEGATIVE mg/dL (<2.0)
[2020-03-24 00:31] LABS: ARTERIAL BLOOD BASE EXCESS -2.7 mmol/L; ARTERIAL BLOOD FIO2 100%; ARTERIAL BLOOD H2CO3 1.38 mmol/L (1.05-1.35); ARTERIAL BLOOD HCO3 23.5 mmol/L (20-24); ARTERIAL BLOOD PH 7.33 (7.35-7.45)
[2020-03-24 00:32] LABS: ARTERIAL BLOOD PO2 39.4 mmHg (80-100)
[2020-03-24] MEDS ORDERED: MORPHINE SULFATE 10 MG/ML INJ IV PRN ×3 (01:32→02:00)
[2020-03-24] MEDS ORDERED: FUROSEMIDE INJ/PF 100 MG/10 ML SDV IV ONE (01:45)
--- NOTE | 2020-03-24 02:06 | RADIOLOGY REPORT (SQ) ---
CLINICAL INDICATION: COVID-19. TECHNIQUE: A single portable AP view was obtained of the chest at 0128 hours. COMPARISON: March 20, 2020. FINDINGS: The cardiomediastinal silhouette is prominent but stable. The lungs demonstrate interstitial alveolar space disease, improved. No significant pleural fluid. No pneumothorax. Osteoarthritis. IMPRESSION: Improved aeration.
[2020-03-24] MEDS: MORPHINE SULFATE 10 MG/ML INJ IV PRN ×3 (02:16→14:23)
[2020-03-24 03:32] LABS: ARTERIAL BLOOD BASE EXCESS -1.6 mmol/L; ARTERIAL BLOOD H2CO3 1.15 mmol/L (1.05-1.35); ARTERIAL BLOOD HCO3 22.9 mmol/L (20-24); ARTERIAL BLOOD O2 SATURATION 82.8 % (94-98); ARTERIAL BLOOD PCO2 38.1 mmHg (35-45); ARTERIAL BLOOD PO2 46.8 mmHg (80-100); ARTERIAL BLOOD TOTAL CO2 24.1 mmol/L (21-25)
[2020-03-24 03:33] LABS: ARTERIAL BLOOD FIO2 100%
[2020-03-24] MEDS: DEXAMETHASONE SOD PHOSPHATE INJ 4 MG/1 ML VIAL IV SCH ×2 (05:16→14:23)
[2020-03-24 05:27] LABS: HEMATOCRIT 47.5 % (36.0-47.0); MEAN CORPUSCULAR HEMOGLOBIN 35.8 pg (27.0-33.4); MEAN CORPUSCULAR HGB CONC 33.7 g/dL (32.0-36.0); MEAN CORPUSCULAR VOLUME 106 fl (80-97); RED BLOOD COUNT 4.48 10^6/uL (3.72-5.28); RED CELL DISTRIBUTION WIDTH 15.8 % (11.5-14.0)
[2020-03-24 05:47] LABS: ALBUMIN 2.7 g/dL (3.5-5.0); ALKALINE PHOSPHATASE 171 U/L (38-126); ANION GAP 10 (5-19); ASPARTATE AMINO TRANSFERASE 89 U/L (14-36); BILIRUBIN,DIRECT 1.1 mg/dL (0.0-0.4); BILIRUBIN,TOTAL 3.2 mg/dL (0.2-1.3); BLOOD UREA NITROGEN 37 mg/dL (7-20); CALCIUM 8.4 mg/dL (8.4-10.2); CARBON DIOXIDE 27 mmol/L (22-30); CHLORIDE 104 mmol/L (98-107); GLUCOSE 147 mg/dL (75-110); PHOSPHORUS 4.5 mg/dL (2.5-4.5); POTASSIUM 3.9 mmol/L (3.6-5.0); TOTAL PROTEIN 6.5 g/dL (6.3-8.2)
[2020-03-24 05:57] LABS: PLATELET COUNT 34 10^3/uL (150-450)
[2020-03-24 05:59] LABS: ABSOLUTE LYMPHOCYTES# (MANUAL) 0.3 10^3/uL (0.5-4.7); ABSOLUTE MONOCYTES # (MANUAL) 1.6 10^3/uL (0.1-1.4); BAND NEUTROPHILS % (MANUAL) 1 % (3-5); BASOPHILS % (MANUAL) 0 % (0-2); EOSINOPHILS % (MANUAL) 0 % (0-6); LYMPHOCYTES % (MANUAL) 1 % (13-45); MONOCYTES % (MANUAL) 5 % (3-13); SEGMENTED NEUTROPHILS % (MAN) 93 % (42-78); TOTAL CELLS COUNTED 100
[2020-03-24 06:02] LABS: ANISOCYTOSIS 1+; OVALOCYTES 1+; POLYCHROMASIA SLIGHT; TEAR DROP CELLS SLIGHT
[2020-03-24 06:03] LABS: PLATELET COMMENT DECREASED
[2020-03-24] MEDS ORDERED: VANCOMYCIN HCL 0 MG in DEXTROSE 5%-WATER 250 ML IV NR (07:45)
[2020-03-24] MEDS: IPRATROPIUM/ALBUTEROL 0.5-2.5 MG/3 ML AMPUL NEB SCH ×3 (07:58→20:46)
[2020-03-24] MEDS ORDERED: CEFEPIME 1 GM/D5W RTU 1 GM/50 ML RTUPB IV SCH (08:00)
[2020-03-24] MEDS: INSULIN LISPRO 100 UNIT/ML 3 ML VIAL SUBCUT SCH ×4 (08:12→23:44)
[2020-03-24] MEDS ORDERED: VANCOMYCIN HCL 1,250 MG in DEXTROSE 5%-WATER 250 ML IV SCH (10:00)
--- NOTE | 2020-03-24 11:59 | PDOC PROGRESS REPORT ---
Subjective Progress Note for:: 03/24/20 Subjective:: GABRIELE RODRIGUEZ is a 59 year old female past medical history of th rombocytosis, CAD status post [place] 2010 and pacemaker placement, hypertension, diabetes, presented to ED complaining of 1 week of generalized fatigue and weakness, shortness of breath associated with dry cough, nonbloody diarrhea subjective fever. A week ago patient went to her PCP and It was suspected and patient was tested for COVID and was started on azithromycin, today patient was notified by her PCP that her COVID test had come back positive and she needed to report to ED. Denies any chest pain, headache, vision changes, loss of taste, loss of smell, focal neurological symptoms, orthopnea, proximal nocturnal dyspnea, weight gain, weight loss, abdominal pain, constipation or any urinary symptoms. In the ED she was noted to be febrile, tachycardic and tachypneic hyperkalemic, and chest x-ray showing multilobar pneumonia. Hospitalist was consulted for admission. 03/16/2020. No acute events overnight. Comfortably resting in bed apparent distress, denies any fever, chills, nausea, vomiting, diarrhea, constipation or any urinary symptoms. Ambulatory and having normal bowel and bladder movements. If remains asymptomatic will discharge home tomorrow. 10/16/2019. Yesterday patient was developing hives after receiving ceftriaxone, was given IV Benadryl with resolution of hives and ceftriaxone was DC'd, this morning patient seems to be more respiratory distress, she is noted to be tachypneic and getting winded with trying to talk in full sentences, denies any chest pain, fever, chills, nausea, vomiting. 03/18/2020. No acute events overnight. Significant improvement, on 2 L nasal cannula SPO2 WNL, denies any fever, chills, nausea, vomiting, diarrhea, constipation or any urinary symptoms. Possible DC home tomorrow. Will ambulate today to see if she needs oxygen otherwise will wean off oxygen. 03/19/2020. Patient has been febrile and needing more oxygen, on BiPAP this morning, SPO2 low 90s on 50% oxygen, overall patient is stating that she is doing okay, denies any fever, chills, nausea, vomiting, diarrhea, constipation or any urinary symptoms. I have asked her if she would like us to get her effervescent plasma she is stating that she needs to talk to her family. 03/20/2020. Patient is still BiPAP dependent and on FiO2 of 100% saturating low 90s and high 80s, patient is in moderate respiratory distress however still awake and alert and oriented x4, stating that she is feeling tired and fatigued otherwise denies any chest pain, fever, chills, nausea, vomiting. Has not been able to eat much as she is dependent on BiPAP. 03/21/2020. Unfortunately patient oxygen demand has not changed, still on BiPAP with FiO2 of 100% saturating high 80s and low 90s, repeat ABG has not shown any significant change however patient is not acidotic, ICU was notified 03/20/2020 for possible transfer however they have asked for the patient to remain in IMCU for now, fortunately patient still is still awake and alert and cooperative with physical examination even though she is very hypoxic, complaining of being tired and fatigued and short of breath however denies any chest pain nausea, vomiting or diarrhea. WBC trending down and patient has been afebrile. 03/22/2020. Unfortunately patient still 100% oxygen and dependent on BiPAP, patient still awake and alert and oriented, seems to be on moderate respiratory distress, stating that she is feeling tired and hurts everywhere otherwise denies any chest pain, nausea, vomiting, diarrhea, constipation. 03/23/2020. Unfortunately patient has not had any changes compared to yesterday, still on BiPAP 100% saturating in low 80s, patient is still awake and alert but appears very weak and exhausted, denies any chest pain but stating that she feels very weak, denies any nausea, vomiting, diarrhea. Has not been able to take any p.o. intake as patient is dependent on supplemental oxygen 03/03. Try to transfer patient to [facility] unfortunately they did not accept her, [facility] at [facility] was consulted for possible transfer to ICU however as per their evaluation patient can managed here at [facility] and does not need to be intubated yet. Please refer to [facility] note. 03/24/2020. Unfortunately patient has not improved much, still on BiPAP requiring 100% oxygen, saturating in low 80s, patient looks exhausted and only responds to verbal and tactile stimuli, he does not provide much history except for saying that she is tired. Patient received 2 doses of IV Lasix unfortunately with no significant improvement, patient has elevated LFTs and creatinine. Reason For Visit: RESPIRATORY FAILURE WITH HYPOXIA, COVID-19 Physical Exam Vital Signs: Temp Pulse Resp BP Pulse Ox 99.5 F 99 45 H 128/95 H 83 L 03/23/20 20:25 03/24/20 07:58 03/24/20 07:58 03/23/20 20:25 03/24/20 07:58 Intake & Output 03/23/20 03/24/20 03/25/20 06:59 06:59 06:59 Intake Total 1500 1257 Output Total 250 Balance 1250 1257 Weight 64.1 kg 64.1 kg General appearance: PRESENT: severe distress Head exam: PRESENT: atraumatic, normocephalic Respiratory exam: PRESENT: clear to auscultation tristan, decreased breath sounds, tachypnea. ABSENT: rales, rhonchi, wheezes Cardiovascular exam: PRESENT: tachycardia GI/Abdominal exam: PRESENT: normal bowel sounds, soft. ABSENT: distended, guarding, mass, organolmegaly, rebound, tenderness Neurological exam: PRESENT: alert - Somnolent but arousable., oriented to person, CN II-XII grossly intact. ABSENT: motor sensory deficit Results Laboratory Results: 03/24/20 04:38 03/24/20 04:38 03/23/20 03/24/20 03/24/20 22:57 00:00 03:22 WBC RBC Hgb Hct MCV MCH MCHC RDW Plt Count Seg Neutrophils % Carbonic Acid 1.38 H 1.15 HCO3/H2CO3 Ratio 17:1 19:1 ABG pH 7.33 L 7.40 ABG pCO2 46.0 H 38.1 ABG pO2 39.4 L* 46.8 L ABG HCO3 23.5 22.9 ABG O2 Saturation 70.0 L 82.8 L ABG Base Excess -2.7 -1.6 FiO2 100% 100% Sodium Potassium Chloride Carbon Dioxide Anion Gap BUN Creatinine Est GFR ( Amer) Glucose Calcium Phosphorus Magnesium Total Bilirubin AST Alkaline Phosphatase Total Protein Albumin Urine Color NEELAM Urine Appearance CLOUDY Urine pH 6.0 Ur Specific [place] 1.019 Urine Protein 100 H Urine Glucose (UA) 50 H Urine Ketones NEGATIVE Urine Blood MODERATE H Urine Nitrite NEGATIVE Ur Leukocyte Esterase TRACE H Urine WBC (Auto) 10 Urine RBC (Auto) 14 03/24/20 03/24/20 04:38 04:38 WBC 32.0 H* RBC 4.48 Hgb 16.0 H Hct 47.5 H MCV 106 H MCH 35.8 H MCHC 33.7 RDW 15.8 H Plt Count 34 L Seg Neutrophils % Not Reportable Carbonic Acid HCO3/H2CO3 Ratio ABG pH ABG pCO2 ABG pO2 ABG HCO3 ABG O2 Saturation ABG Base Excess FiO2 Sodium 140.5 Potassium 3.9 Chloride 104 Carbon Dioxide 27 Anion Gap 10 BUN 37 H Creatinine 1.26 H Est GFR ( Amer) 53 L Glucose 147 H Calcium 8.4 Phosphorus 4.5 Magnesium 2.7 H Total Bilirubin 3.2 H AST 89 H Alkaline Phosphatase 171 H Total Protein 6.5 Albumin 2.7 L Urine Color Urine Appearance Urine pH Ur Specific [place] Urine Protein Urine Glucose (UA) Urine Ketones Urine Blood Urine Nitrite Ur Leukocyte Esterase Urine WBC (Auto) Urine RBC (Auto) 03/15/20 03/15/20 03/16/20 15:30 15:30 08:30 Creatine Kinase 37 CK-MB (CK-2) < 0.22 Troponin I 0.017 < 0.012 NT-Pro-B Natriuret Pep 932 H Impressions: Chest X-Ray 03/24/20 00:00 IMPRESSION: Improved aeration. Assessment and Plan - Diagnosis (1) Multifocal pneumonia Is this a current diagnosis for this admission?: Yes Plan: Worsening hypoxemia. BiPAP dependent on FiO2 of 100% SPO2 low 80s. Patient is very somnolent but arousable. Likely due to COVID-19, superimposed bacterial pneumonia could also be a possibility. On admission chest x-ray positive for multifocal pneumonia. Worsening leukocytosis. Afebrile. Day 10 IV antibiotics. Day 10 IV azithromycin. Received 2 days of IV ceftriaxone. DC IV ceftriaxone patient developed hives. Day 10 IV dexamethasone. Day 10 therapeutic Lovenox. Received 9 days of IV vancomycin. Completed a course of IV Remdisivir. Status post effervescent plasma transfusion on 03/20/2020. Continue empiric IV antibiotics, sputum culture, supplemental oxygen, duo nebs, weight dosed Lovenox, incentive spirometry, flutter valve. [facility] has been consulted, recommendation is to manage patient in IMCU. Please refer to [facility] note. (2) Leukocytosis Qualifiers: Leukocytosis type: bandemia Qualified Code(s): D72.825 - Bandemia Is this a current diagnosis for this admission?: Yes Plan: Neutrophilic leukocytosis with bandemia. Low-grade fever. Patient has already been on azithromycin since admission. Allergic to ceftriaxone. Patient is is at risk of developing superimposed bacterial pneumonia. No procalcitonin available at [facility]. We will start on broad-spectrum IV antibiotics to cover healthcare associated pneumonia. Day 1 IV aztreonam. Patient has already received 8 days of IV vancomycin. Repeat blood culture. (3) COVID-19 Is this a current diagnosis for this admission?: Yes Plan: Patient is COVID positive with multifocal pneumonia. As noted above she has received aggressive and comprehensive treatment including antibiotics, steroids, convalescent serum and Remdisivir. (4) CAD (coronary artery disease) Qualifiers: Coronary Disease-Associated Artery/Lesion type: [place] artery [place] vs. transplanted heart: [place] heart Associated angina: without angina Qualified Code(s): I25.10 - Atherosclerotic heart disease of [place] coronary artery without angina pectoris Is this a current diagnosis for this admission?: Yes Plan: Denies any anginal symptoms. Status post [place] 2010. Pacemaker in place. Mildly elevated troponin likely due to demand mismatch. Resume home meds. Trend troponins. Aspirin and statin. (5) Thrombocytosis Is this a current diagnosis for this admission?: Yes Plan: History of thrombocytosis. Platelets are actually dropping. Hydroxyurea on hold since 03/22/2020. Resume home meds upon discharge. Outpatient PCP and hematology follow-up. (6) Hypertension Is this a current diagnosis for this admission?: Yes Plan: Euvolemic. Normotensive. Currently not on any antihypertensive meds. Monitor vitals. PRN IV hydralazine and IV metoprolol. (7) Hyperkalemia Is this a current diagnosis for this admission?: Yes Plan: Resolved. No acute EKG changes. Hyperkalemia protocol. (8) Diabetes Qualifiers: Diabetes mellitus type: type 2 Is this a current diagnosis for this admission?: Yes Plan: Noted to be hypoglycemic yesterday as patient is not able to eat anything due to to being dependent on BiPAP. Currently on D5 NS. Continue diabetic diet. Sliding scale insulin. Accu-Chek. Hypoglycemia protocol. (9) Gram-positive bacteremia Is this a current diagnosis for this admission?: Yes Plan: Blood culture 1/2 bottles positive for coag negative Staphylococcus epidermidis methicillin-resistant gene positive. Received 8 days of IV vancomycin. Repeat cultures all negative. (10) Acute respiratory failure with hypoxemia Is this a current diagnosis for this admission?: Yes Plan: As per #1. - Time Time Spent with patient: 25-34 minutes Medications reviewed and adjusted accordingly: Yes Anticipated Discharge Disposition: Home with Home Health Anticipated Discharge Timeframe: within 72 hours
[2020-03-24] MEDS ORDERED: DEXTROSE 5%-NORMAL SALINE 1,000 ML IV PRN (12:10)
[2020-03-24] MEDS: SOTALOL HCL 80 MG TABLET PO SCH (12:14)
[2020-03-24] MEDS: ZINC SULFATE 220 MG CAPSULE PO SCH (12:15)
[2020-03-24] MEDS: ENOXAPARIN SODIUM INJ 60 MG/0.6 ML DISP.SYRIN SUBCUT SCH (12:15)
[2020-03-24] MEDS: ESCITALOPRAM OXALATE 10 MG TABLET PO SCH (12:15)
[2020-03-24] MEDS: ASCORBIC ACID 500 MG TABLET PO SCH ×2 (12:15→17:17)
[2020-03-24] MEDS: FLUTICASONE/VILANTEROL 200-25 MCG/DOSE IH SCH (12:15)
[2020-03-24] MEDS: FAMOTIDINE 20 MG TABLET PO SCH (12:19)
[2020-03-24] MEDS: FAMOTIDINE INJ/PF 20 MG/2 ML SDV IV SCH (14:23)
[2020-03-24] MEDS: AZTREONAM 1 GM in DEXTROSE 5%-WATER 50 ML IV SCH (16:03)
[2020-03-24] MEDS: METOPROLOL TARTRATE PF/INJ 5 MG/5 ML SDV IV PRN (18:34)
--- NOTE | 2020-03-24 18:43 | RADIOLOGY REPORT (SQ) ---
EXAM DESCRIPTION: CHEST SINGLE VIEW IMAGES COMPLETED DATE/TIME: 03/24/2020 6:30 pm REASON FOR STUDY: Central line placement COMPARISON: 03/24/2020 EXAM PARAMETERS: NUMBER OF VIEWS: One view. TECHNIQUE: Single frontal radiographic view of the chest acquired. RADIATION DOSE: NA LIMITATIONS: None. FINDINGS: LUNGS AND PLEURA: Pulmonary edema. MEDIASTINUM AND HILAR STRUCTURES: No masses. Contour normal. HEART AND VASCULAR STRUCTURES: Heart normal in size. Normal vasculature. BONES: No acute findings. HARDWARE: Possible right jugular venous catheter. The patient is rotated. Pacemaker/ defibrillator. OTHER: No other significant finding. IMPRESSION: Pulmonary edema. Possible right IJV catheter. TECHNICAL DOCUMENTATION: JOB ID: [id number] 2010 [employer]- All Rights Reserved Reading location - IP/workstation name: [email or web address]
[2020-03-24 23:19] LABS: AMORPHOUS SEDIMENT,URINE TRACE /HPF; APPEARANCE,URINE CLOUDY; BILIRUBIN,URINE NEGATIVE (NEGATIVE); CALCIUM OXALATE CRYSTALS,URINE MODERATE /HPF; COLOR,URINE AMBER; GLUCOSE, URINE NEGATIVE (NEGATIVE); KETONES,URINE NEGATIVE (NEGATIVE); LEUKOCYTE ESTERASE,URINE NEGATIVE (NEGATIVE); NITRITE,URINE NEGATIVE (NEGATIVE); PROTEIN,URINE 100 mg/dL (NEGATIVE); URINE SPECIFIC GRAVITY 1.016; UROBILINOGEN,URINE NEGATIVE mg/dL (<2.0)
[2020-03-25] MEDS: METOPROLOL TARTRATE PF/INJ 5 MG/5 ML SDV IV PRN (03:59)
[2020-03-25] MEDS: ENOXAPARIN SODIUM INJ 60 MG/0.6 ML DISP.SYRIN SUBCUT SCH (04:00)
[2020-03-25] MEDS ORDERED: SODIUM BICARBONATE 8.4% INJ 50 MEQ/50 ML DISP.SYRIN ONE (05:00)
[2020-03-25] MEDS ORDERED: MAGNESIUM SULFATE PF/INJ 40 MEQ/10 ML SDV ONE (05:00)
[2020-03-25] MEDS ORDERED: EPINEPHRINE INJ 1 MG/10 ML DISP.SYRIN ONE (05:00)
--- NOTE | 2020-03-25 05:35 | Death Summary ---
Summary Date : 03/25/20 Time of :: 04:51 Autopsy: No Resuscitation Status: Full Code - Final Diagnosis (1) Acute respiratory failure with hypoxemia Is this a current diagnosis for this admission?: Yes (2) COVID-19 Is this a current diagnosis for this admission?: Yes (3) Pneumonia due to severe acute respiratory syndrome coronavirus 2 (SARS-CoV- 2) Is this a current diagnosis for this admission?: Yes (4) Diabetes Is this a current diagnosis for this admission?: Yes (5) Hypertension Is this a current diagnosis for this admission?: Yes (6) CAD (coronary artery disease) Is this a current diagnosis for this admission?: Yes Hospital Course:: This was a chronically ill 59-year-old female with multiple medical comorbidities including COPD, coronary artery disease, diabetes, and hypertension who has been having symptoms for about a week before she was forced to seek treatment. She saw her primary care provider and was suspected to have COVID-19 and so she was tested and empirically started on azithromycin. Her test results came back couple days later and they were positive, so her primary care provider sent her to the emergency department for evaluation. It seems that at the time of the initial assessment she was not doing too poorly but she was admitted for observation and she deteriorated. She wound up becoming BiPAP dependent and despite aggressive treatment was ultimately to the point where her saturations could not be maintained above 90%. She received very aggressive treatment, including a full course of remdesivir, Decadron, azithromycin, zinc, and convalescent plasma. She was also empirically treated for a bacterial pneumonia in case this was superimposed. She only had one blood culture turned positive and that was from a coagulase-negative Staphylococcus and repeat cultures were negative. Early this morning due to her refractory hypoxemia she succumbed, losing a pulse and a CODE BLUE was called. She received several roun ds of CPR and drugs but after 22 minutes no return of circulation was able to be achieved and given how critically ill she had been for many days it was felt that additional CPR would be unlikely to provide a return of spontaneous circulation. The patient's daughter was notified that the patient had .
[2020-03-25 06:40] VITALS: BP 119/92
--- NOTE | 2020-03-25 08:34 | RADIOLOGY REPORT (SQ) ---
EXAM DESCRIPTION: CHEST SINGLE VIEW IMAGES COMPLETED DATE/TIME: 03/24/2020 8:34 pm REASON FOR STUDY: for verification of central line placement. COMPARISON: 03/24/2020 EXAM PARAMETERS: NUMBER OF VIEWS: One view. TECHNIQUE: Single frontal radiographic view of the chest acquired. RADIATION DOSE: NA LIMITATIONS: None. FINDINGS: LUNGS AND PLEURA: Stable pulmonary examination demonstrating diffuse airspace opacities. Likely small left-sided pleural effusion. No pneumothorax. MEDIASTINUM AND HILAR STRUCTURES: No masses. Contour normal. HEART AND VASCULAR STRUCTURES: Heart normal in size. Normal vasculature. BONES: No acute findings. HARDWARE: AICD appears stable. OTHER: No other significant finding. IMPRESSION: Stable radiographic appearance of the chest. TECHNICAL DOCUMENTATION: JOB ID: [id number] 2010 [employer]- All Rights Reserved Reading location - IP/workstation name: [email or web address]
[2020-03-25] MEDS: AZTREONAM 1 GM in DEXTROSE 5%-WATER 50 ML IV SCH ×2 (11:13→11:16)
[2020-03-25] MEDS: DEXAMETHASONE SOD PHOSPHATE INJ 4 MG/1 ML VIAL IV SCH ×2 (11:14→11:16)
[2020-03-25] MEDS: AZITHROMYCIN 500 MG in DEXTROSE 5%-WATER 250 ML IV SCH (11:14)
[2020-03-25] MEDS: FAMOTIDINE INJ/PF 20 MG/2 ML SDV IV SCH (11:14)
--- NOTE | 2020-04-08 03:44 | Operative Report ---
Bedside Procedure - History of Present Illness History of Present Illness: GABRIELE RODRIGUEZ is a 59 year old female past medical history of thrombocytosis, CAD status post [place] 2010 and pacemaker placement, hypertension, diabetes, presented to ED complaining of 1 week of generalized fatigue and weakness, shortness of breath associated with dry cough, nonbloody diarrhea subjective fever. A week ago patient went to her PCP and It was suspected and patient was tested for COVID and was started on azithromycin, today patient was notified by her PCP that her COVID test had come back positive and she needed to report to ED. Denies any chest pain, headache, vision changes, loss of taste, loss of smell, focal neurological symptoms, orthopnea, proximal nocturnal dyspnea, weight gain, weight loss, abdominal pain, constipation or any urinary symptoms. In the ED she was noted to be febrile, tachycardic and tachypneic hyperkalemic, and chest x-ray showing multilobar pneumonia. Hospitalist was consulted for admission. Indication for Procedure: Venous access, TPN Date: 03/24/20 Provider: GOMEZ CHAVEZ - Linn Stern, PASTEURIZING MACHINE OPERATOR - Central Line Right Internal jugular Time completed: 18:30 Consent obtained: Yes - Family Central line pre-insertion: Sterile PPE donned, Betadine prep applied Central line lumen type: Triple Anesthetic type: 1% Lidocaine Ultrasound guided: Yes Central line post-insertion: Blood return from lumens, Biopatch applied, Sterile dressing applied, Position confirmed w/ CXR Complications: Yes Notes: 04/08/20 03:24 Right IJ was attempted with the help of SRIDHAR Stern. Intially successfully placed needle in IJ with the help of ultrasound, then guidewire was successfully introduced, while trying to introduce triple-lumen catheter some resistance was felt and we were unable to withdraw any blood, procedure was stopped and a stat chest x-ray obtained which showed catheter likely in the right IJ, we tried to reposition the catheter however still could not get any blood draw, procedure was aborted, and catheter was removed, unfortunately patient was to be bleeding from the site and was unable to achieve hemostasis due to severe underlying thrombocytopenia and elevated d-dimer likely due to underlying COVID-19 infection, pressure was applied over the right side of the neck with sterile gauze for about 10 to 15 minutes, hemostasis achieved however patient noted to have some swelling on the right side of her neck, a stat chest x-ray was obtained which was negative for any pneumothorax or hematoma. Patient was on BiPAP and maintaining her airways during procedure, SPO2 remained unchanged during and postprocedure. A follow-up chest x-ray showed a stable appearance of the chest, with no pneumothorax.
--- NOTE | 2020-04-08 03:47 | Operative Report ---
Bedside Procedure - History of Present Illness History of Present Illness: GABRIELE RODRIGUEZ is a 59 year old female past medical history of thrombocytosis, CAD status post [place] 2010 and pacemaker placement, hypertension, diabetes, presented to ED complaining of 1 week of generalized fatigue and weakness, shortness of breath associated with dry cough, nonbloody diarrhea subjective fever. A week ago patient went to her PCP and It was suspected and patient was tested for COVID and was started on azithromycin, today patient was notified by her PCP that her COVID test had come back positive and she needed to report to ED. Denies any chest pain, headache, vision changes, loss of taste, loss of smell, focal neurological symptoms, orthopnea, proximal nocturnal dyspnea, weight gain, weight loss, abdominal pain, constipation or any urinary symptoms. In the ED she was noted to be febrile, tachycardic and tachypneic hyperkalemic, and chest x-ray showing multilobar pneumonia. Hospitalist was consulted for admission. Indication for Procedure: Venous access, TPN Date: 03/24/20 Provider: GOMEZ CHAVEZ - Central Line Right Femoral Time completed: 19:00 Consent obtained: Yes - Family Central line pre-insertion: Sterile PPE donned, Betadine prep applied Central line lumen type: Triple Anesthetic type: 1% Lidocaine Ultrasound guided: Yes Line secured with sutures: Yes Central line post-insertion: Blood return from lumens, Biopatch applied, Sutured Complications: No
== END 2020-03-25 06:25 | DRG 177 ==
LOC: ER 12:21 → EH 18:56 → 3N 23:12
PROVIDERS: ADMIT Internal Medicine; ATTEND Internal Medicine
PROC: 5A09557 Assistance with Respiratory Ventilation, Greater than 96 Consecutive Hours, Continuous Positive Airway Pressure (ICD-10-PCS; 2020-03-15)
PROC: XW033E5 Introduction of Remdesivir Anti-infective into Peripheral Vein, Percutaneous Approach, New Technology Group 5 (ICD-10-PCS; 2020-03-17)
PROC: XW13325 Transfusion of Convalescent Plasma (Nonautologous) into Peripheral Vein, Percutaneous Approach, New Technology Group 5 (ICD-10-PCS; principal; 2020-03-20)
PROC: XW033E5 Introduction of Remdesivir Anti-infective into Peripheral Vein, Percutaneous Approach, New Technology Group 5 (ICD-10-PCS; 2020-03-21)
DX: U07.1 COVID-19 (principal); J12.89 Other viral pneumonia; J15.9 Unspecified bacterial pneumonia; J96.01 Acute respiratory failure with hypoxia; E87.5 Hyperkalemia; I25.10 Atherosclerotic heart disease of native coronary artery without angina pectoris; I10 Essential (primary) hypertension; E78.5 Hyperlipidemia, unspecified; I25.2 Old myocardial infarction; D47.3 Essential (hemorrhagic) thrombocythemia; R79.89 Other specified abnormal findings of blood chemistry; L50.0 Allergic urticaria; T36.1X5A Adverse effect of cephalosporins and other beta-lactam antibiotics, initial encounter; Y92.239 Unspecified place in hospital as the place of occurrence of the external cause; E11.649 Type 2 diabetes mellitus with hypoglycemia without coma; Z87.891 Personal history of nicotine dependence; Z79.84 Long term (current) use of oral hypoglycemic drugs; Z79.899 Other long term (current) drug therapy; Z95.0 Presence of cardiac pacemaker
CPT/HCPCS: 36415; 36430; 36600; 71045; 80048; 80053; 80061; 80202; 81001; 82550; 82553; 82652; 82803; 82962; 83036; 83605; 83615; 83690; 83735; 83880; 84100; 84484; 85025; 85027; 85379; 85384; 85610; 85730; 86140; 86850; 86900; 86901; 87040; 87077; 87186; 92950; 93005; 93010; 94640; 94660; 96361; 96365; 96367; 96375; 99284; J0171; J0456; J0696; J1100; J1200; J1650; J1815; J1940; J2060; J2270; J3370; J3475; J3490; J7030; J7042; J7050; J7060; J7120; S0028